=== PATIENT | female | born 1990 | race Caucasian/White ===

== ENCOUNTER 2016-08-01 12:34 | Emergency (ER) | payer OTHER ==
[~2016-08-01] VITALS: Ht 175.3 cm; Wt 90.9 kg
[~2016-08-01 12:34] MED LIST: AZIT500T3 PO
[2016-08-01 12:40] VITALS: Ht 175.3 cm; Wt 90.9 kg
--- NOTE | 2016-08-01 12:41 | ERA ---
ER Documentation Chief Complaint Date/Time DATE: 08/01/16 TIME: 12:38 Chief Complaint HPI This is a 26-year-old female that was brought into the emergency department by [employer] and she is currently in custody. The patient indicates that that she is currently 5 weeks dated by last menstrual period. She has received care. She is a 2 para 0 as she had a previous miscarriage at 7 weeks. She denies any fever shaking or chills no shortness of breath at rest or exertion. She is experiencing pelvic cramping that occurred just prior to arrival with vaginal spotting. She denies any passage of large vaginal clots and states she has no dizziness or lightheadedness. She denies any frequency urgency or dysuria ROS All systems reviewed and are negative except as per history of present illness. Medications Home Meds Discontinued Reported Medications Azithromycin* (Zithromax*) Unknown Strength Tablet, PO ONCE, #1 TAB 02/29/16 Allergies Allergies: Coded Allergies: No Known Allergy (Unverified , 01/24/13) PMhx/Soc History of Surgery: No Anesthesia Reaction: No Hx Neurological Disorder: No Hx Respiratory Disorders: No Hx Cardiac Disorders: No Hx Psychiatric Problems: Yes (SCHIZOPRENIA, BI-POLAR, sz disorder ) Hx Miscellaneous Medical Probl: No Hx Alcohol Use: No (former) Hx Substance Use: No (former) Hx Tobacco Use: No (former) Physical Exam Vitals Vital Signs Date Time Temp Pulse Resp B/P Pulse Ox O2 Delivery O2 Flow Rate FiO2 08/01/16 12:40 98.6 90 18 140/86 99 Physical Exam Constitutional:Well-developed. Well-nourished. HEENT:Normocephalic. Atraumatic.Pupils were equal round reactive to light. Moist mucous membranes.No tonsillar exudates. Neck: No nuchal rigidity. No lymphadenopathy. No posterior cervical spine tenderness or step-offs. Respiratory: Not using accessory muscles of respiration.Lungs were clear to auscultation bilaterally. No rhonchi. No rales. No wheezing. Cardiovascular: Regular rate regular rhythm.No murmurs. No rubs were appreciated.S1, S2 normal. Distal pulses are palpable 2+ bilaterally. GI: Abdomen was soft. Nontender. Non Distended. No pulsatile abdominal masses or bruits. No rebound. No guarding. Bowel sounds were present and normal. : Pelvic exam was performed by myself and the patient denied a female nausea found to be present. There is no cervical motion tenderness no adnexal tenderness or adnexal masses. No gross blood present within the vaginal vault Muscle skeletal: Full range of motion of both the upper and lower extremities bilaterally.Normal muscle tone.No assymetrical calf tenderness or swelling. Skin: No petechia, no purpura. No lesions on the palms or the soles of the feet. No maculopapular rash. NEURO: Patient was alert, awake, orientated x3.No facial droop. Gait observed and normal with no ataxia.Speech had regular rate and rhythm. No focal neurological deficits. Result Diagram: 08/01/16 1250 08/01/16 1250 Results 24 hrs Laboratory Tests Test 08/01/16 12:41 08/01/16 12:50 Urine Bacteria FEW Urine Bilirubin NEGATIVE Urine Clarity CLEAR Urine Color LT. YELLOW Urine Epithelial Cells MODERATE Urine Glucose NEGATIVE% Urine Hemoglobin NEGATIVE Urine Ketones NEGATIVE Urine Leukocyte Esterase 1+ Urine Microscopic RBC 0-2/HPF Urine Microscopic WBC 2-5/HPF Urine Nitrite NEGATIVE Urine Specific [place] 1.010 Urine Total Protein NEGATIVE Urine Urobilinogen 0.2 E.U./dL Urine pH 6.0 Anion Gap 16 Basophils # 0.010^3/ul Basophils % 0.5% Beta HCG, Quantitative 252.7mIU/ml Blood Morphology Comment Blood Urea Nitrogen 7mg/dl Calcium Level 9.8mg/dl Carbon Dioxide Level 28mmol/L Chloride Level 101mmol/L Creatinine 0.48mg/dl Eosinophils # 0.010^3/ul Eosinophils % 0.3% Glucose Level 107mg/dl Hematocrit 41.4% Hemoglobin 14.0g/dl Lymphocytes # 2.410^3/ul Lymphocytes % 25.6% Mean Corpuscular Hemoglobin 32.5pg Mean Corpuscular Hemoglobin Concent 33.9g/dl Mean Corpuscular Volume 96.0fl Mean Platelet Volume 7.4fl Monocytes # 0.410^3/ul Monocytes % 4.1% Neutrophils # 6.410^3/ul Neutrophils % 69.5% Nucleated Red Blood Cells # 0.010^3/ul Nucleated Red Blood Cells % 0.0/100WBC Platelet Count 94916^3/UL Potassium Level 4.4mmol/L Red Blood Count 4.3110^6/ul Red Cell Distribution Width 13.0% Sodium Level 141mmol/L White Blood Count 9.210^3/ul Procedures/MDM This patient presented to the emergency department with first trimester vaginal bleeding and pain. An ultrasound of the pelvis was performed by the lead principal technical architect and read by the radiologist myself. There is no evidence of ectopic . The patient was not anemic and did not require RhoGam. The patient's beta hCG was only 252 and there is no intrauterine that was seen on the ultrasound. However given the patient was below the discriminatory zone I did feel she required follow-up with her [facility] [employer] [facility] in 48 hours for repeat beta hCG. The patient had no physical exam findings at this time to suggest ectopic . The patient was medically cleared for alf at this time by myself. She was instructed that she will need to follow-up with her [facility] [employer] [employer] [facility] in the next 48 hours for reevaluation. The patient was discharged home in fair condition. They were instructed to return to the emergency department at any time if there was any worsening of their condition. The patient stated they would follow up with their PCP in the next 24-48 hours to initiate a suitable medication regimen under the care of their PCP as well as to allow their PCP to monitor any drug reactions. The patient was discharged home with prescriptions after they gave informed consent to the new medication. They were also fully informed by myself on the adverse effects and adverse drug interactions in order to provide adequate safeguards to prevent possible adverse reactions to medications. Departure Diagnosis: Primary Impression: Threatened in first trimester Condition: YOLANDA Garcia Aug 01, 2016 12:41
[2016-08-01 13:05] LABS: BASOPHILS % 0.5 % (0.0-2.0); EOSINOPHILS % 0.3 % (0.0-7.0); HEMATOCRIT 41.4 % (37.0-47.0); LYMPHOCYTES # 2.4 10^3/ul (0.8-2.9); LYMPHOCYTES % 25.6 % (15.0-51.0); MEAN CORPUSCULAR HEMOGLOBIN 32.5 pg (29.0-33.0); MEAN CORPUSCULAR HGB CONC 33.9 g/dl (32.0-37.0); MEAN PLATELET VOLUME 7.4 fl (7.4-10.4); MONOCYTE # 0.4 10^3/ul (0.3-0.9); MONOCYTES % 4.1 % (0.0-11.0); NEUTROPHIL # 6.4 10^3/ul (1.6-7.5); NEUTROPHILS % 69.5 % (39.0-77.0); PLATELET COUNT 326 10^3/UL (140-440); RED BLOOD COUNT 4.31 10^6/ul (4.20-5.40); UNCORRECTED WBC 9.2 10^3/ul (4.8-10.8); WHITE BLOOD COUNT 9.2 10^3/ul (4.8-10.8)
[2016-08-01 13:06] LABS: CONDITION 1
[2016-08-01 13:07] LABS: ADD UMIC YES; URINE BILIRUBIN (Dip) NEGATIVE (NEGATIVE); URINE BLOOD (Dip) NEGATIVE (NEGATIVE); URINE COLOR LT. YELLOW (YELLOW); URINE GLUCOSE (Dip) NEGATIVE (NEGATIVE); URINE KETONES (Dip) NEGATIVE (NEGATIVE); URINE LEUKOCYTE ESTERASE (Dip) 1+ (NEGATIVE); URINE NITRITE (Dip) NEGATIVE (NEGATIVE); URINE TOTAL PROTEIN (Dip) NEGATIVE (NEGATIVE); URINE UROBILINOGEN (Dip) 0.2 E.U./dL (0.1-1.0)
[2016-08-01 13:11] LABS: POTASSIUM 4.4 mmol/L (3.5-5.1)
[2016-08-01 13:14] LABS: CREATININE 0.48 mg/dl (0.44-1.00)
[2016-08-01 13:15] LABS: CALCIUM 9.8 mg/dl (8.4-10.2)
[2016-08-01 13:29] LABS: BACTERIA,URINE FEW; URINE RBCS 0-2 /HPF (0)
--- NOTE | 2016-08-01 14:21 | RADRPT ---
PROCEDURE: OB Ultrasound. CLINICAL INDICATION: Positive test. Vaginal bleeding. TECHNIQUE: Ultrasound of the pelvis was performed with transabdominal and transvaginal sonography in the axial and sagittal planes. COMPARISON: No prior study is available for comparison. FINDINGS: There is no intrauterine gestational sac. Endometrial thickness is 14.4 mm. The uterus is normal i n size with no enlargement or mass. The uterus measures 7.9 x 3.8 x 4.6 cm. The right ovary measures 3.1 x 1.9 x 1.9 cm. The left ovary measures 3.0 x 1.6 x 1.4 cm. Color Doppler and pulsed Doppler sonography demonstrate normal flow to both ovaries. There is no ovarian enlargement or mass. There is no other pelvic mass or free fluid. IMPRESSION: 1. No intrauterine gestational sac. If the patient has a positive test, ectopic gestatio n cannot be excluded. 2. Otherwise unremarkable study. RPTAT: QQ .Abimael Kc MD, Date Time Electronically viewed and signed by .Abimael Kc MD, on 08/01/2016 14:21 .R/
[2016-08-01 15:13] VITALS: BP 135/78; PULSE 90; RESP 18; TEMP 98.6
== END 2016-08-01 15:13 | disposition home or self-care (01) ==
LOC: E/R 12:34
DX: O20.0 Threatened abortion (principal); Z87.891 Personal history of nicotine dependence
CPT/HCPCS: 76801; 76817; 80048; 81001; 81003; 84702; 85025; 86900; 86901; 87086

== ENCOUNTER 2016-08-31 09:24 | Emergency (ER) | payer MEDICAID, OTHER ==
[~2016-08-31] VITALS: Ht 175.3 cm; Wt 96.8 kg
[2016-08-31 09:29] VITALS: Ht 175.3 cm; Wt 96.8 kg
[2016-08-31] MEDS ORDERED: ONDANSETRON 4 MG INJ IV STA (10:12)
[2016-08-31] MEDS ORDERED: SOD CHLORIDE 0.9% 1,000 ML IV STA (10:12)
[2016-08-31 10:26] LABS: URINE BLOOD (Dip) POC Negative (NEGATIVE)
[2016-08-31 10:34] LABS: ADD SCAN DIFF NO
[2016-08-31 10:42] LABS: BASOPHIL # 0.1 10^3/ul (0.0-0.1); BASOPHILS % 0.5 % (0.0-2.0); EOSINOPHILS # 0.2 10^3/ul (0.0-0.5); EOSINOPHILS % 1.6 % (0.0-7.0); HEMATOCRIT 40.7 % (37.0-47.0); HEMOGLOBIN 13.1 g/dl (12.0-16.0); LYMPHOCYTES # 2.8 10^3/ul (0.8-2.9); LYMPHOCYTES % 28.6 % (15.0-51.0); MEAN CORPUSCULAR HGB CONC 32.2 g/dl (32.0-37.0); MEAN CORPUSCULAR VOLUME 99.5 fl (82.0-101.0); MEAN PLATELET VOLUME 9.2 fl (7.4-10.4); MONOCYTE # 0.6 10^3/ul (0.3-0.9); MONOCYTES % 6.1 % (0.0-11.0); NEUTROPHIL # 6.1 10^3/ul (1.6-7.5); NEUTROPHILS % 62.5 % (39.0-77.0); PLATELET COUNT 299 10^3/UL (140-415); RED BLOOD COUNT 4.09 10^6/ul (4.20-5.40); RED CELL DISTRIBUTION WIDTH 12.5 % (11.5-14.5); WHITE BLOOD COUNT 9.8 10^3/ul (4.8-10.8)
[2016-08-31 10:56] LABS: BARBITURATES Negative (NEGATIVE); BENZODIAZEPINES Negative (NEGATIVE); CANNABINOIDS Negative (NEGATIVE); COCAINE Negative (NEGATIVE)
[2016-08-31 10:57] LABS: OPIATES Negative (NEGATIVE)
--- NOTE | 2016-08-31 11:12 | RADRPT ---
AMENDMENT: 08/31/2016 12:00:49 PM Pam Calixto M.D. Impression should read estimated gestational age of 6 weeks 4 days. PROCEDURE: US OB. CLINICAL INDICATION: Vaginal bleeding in . TECHNIQUE: Transabdominal and endovaginal imaging of the uterus is available for review COMPARISON: None available FINDINGS: There is a single intrauterine with a mean sac diameter of 1.8 cm, giving an estimated ges tational age of 6 weeks 4 days by ultrasound criteria. No pole or yolk sac is detected. A sm all subchorionic hemorrhage is identified. The ovaries are unremarkable. IMPRESSION: 1. Single intrauterine with an estimated gestational age of 2 weeks 4 days by ultrasound criteria. No pole or yolk sac is identified. This may be secondary to early dates. Repeat pe lvic ultrasound is recommended in 1 week. 2. Small subchorionic hemorrhage. RPTAT: HH .Pam Calixto MD, MD Date Time Electronically viewed and signed by .Pam Calixto MD, on 08/31/2016 12:00 .G/
--- NOTE | 2016-08-31 11:54 | ERD ---
ER Documentation Chief Complaint Date/Time DATE: 08/31/16 TIME: 11:48 Chief Complaint pt bib sister with c/o vomiting and pelvic pain approx 3 wk preg, no bleedi HPI This is a 26-year-old female presenting to the emergency department for vomiting and pelvic cramping 1 week. Patient states she believes she is about 6 weeks . Patient states last menstrual period June 20, 2016. A1. Patient states she has been vomiting about 3 times per day. Nonbloody nonbilious emesis. Patient states each emesis is a small amount. No fevers or chills. No cough, shortness breath, difficulty breathing or chest pain. Patient has been having some pelvic pain and pelvic cramping. Denies vaginal bleeding. No vaginal discharge. Patient denies any recent alcohol, tobacco or drug use. Patient requesting urine toxicity screen to provide for her family. Patient is taking vitamins ROS All systems reviewed and are negative except as per history of present illness. Medications Home Meds Active Scripts Acetaminophen* (Tylenol*) 325 Mg Tablet, 1 TAB PO Q6 Y for PAIN AND OR ELEVATED TEMP, #20 TAB Prov:ENEDINA BARNETT NP 08/31/16 Nitrofurantoin Monohyd Macrocr* (Macrobid*) 100 Mg Capsr, 100 MG PO BID for 5 Days, CAP Prov:ENEDINA BARNETT NP 08/31/16 Allergies Allergies: Coded Allergies: No Known Allergy (Unverified , 08/31/16) PMhx/Soc Medical and Surgical Hx: pt denies Surgical Hx History of Surgery: No Anesthesia Reaction: No Hx Neurological Disorder: No Hx Respiratory Disorders: No Hx Cardiac Disorders: No Hx Psychiatric Problems: Yes (SCHIZOPRENIA, BI-POLAR, sz disorder ) Hx Miscellaneous Medical Probl: No Hx Alcohol Use: No (former) Hx Substance Use: No (former) Hx Tobacco Use: No (former) Smoking Status: Never smoker Physical Exam Vitals Vital Signs Date Time Temp Pulse Resp B/P Pulse Ox O2 Delivery O2 Flow Rate FiO2 08/31/16 12:46 77 18 125/68 99 Room Air 08/31/16 09:29 97.3 84 16 128/70 100 Physical Exam Const: No acute distress, alert Head: Atraumatic Eyes: Normal Conjunctiva ENT: Normal External Ears, Nose and Mouth. Neck: Full range of motion..~ No meningismus. Resp: Clear to auscultation bilaterally Cardio: Regular rate and rhythm, no murmurs Abd: Soft, non tender, non distended. Normal bowel sounds Skin: No petechiae or rashes Back: No midline or flank tenderness Ext: No cyanosis, or edema Neur: Awake and alert Psych: Normal Mood and Affect Result Diagram: 08/31/16 1020 Results 24 hrs Laboratory Tests Test 08/31/16 10:20 08/31/16 10:28 Basophils # 0.110^3/ul Basophils % 0.5% Beta HCG, Quantitative 98632.0mIU/ml Eosinophils # 0.210^3/ul Eosinophils % 1.6% Hematocrit 40.7% Hemoglobin 13.1g/dl Lymphocytes # 2.810^3/ul Lymphocytes % 28.6% Mean Corpuscular Hemoglobin 32.0pg Mean Corpuscular Hemoglobin Concent 32.2g/dl Mean Corpuscular Volume 99.5fl Mean Platelet Volume 9.2fl Monocytes # 0.610^3/ul Monocytes % 6.1% Neutrophils # 6.110^3/ul Neutrophils % 62.5% Nucleated Red Blood Cells # 0.010^3/ul Nucleated Red Blood Cells % 0.0/100WBC Platelet Count 47932^3/UL Red Blood Count 4.0910^6/ul Red Cell Distribution Width 12.5% Urine Amphetamines Screen Negative Urine Barbiturates Negative Urine Benzodiazepines Screen Negative Urine Cannabinoids Negative Urine Cocaine Screen Negative Urine Opiates Screen Negative White Blood Count 9.810^3/ul Bedside Urine Blood Negative Bedside Urine Glucose (UA) Negative Bedside Urine Ketones (LAB) Negative Bedside Urine Leukocyte Esterase (L 1+ Bedside Urine Nitrite (LAB) Negative Bedside Urine Protein (LAB) Negative Bedside Urine pH (LAB) 5.5 Current Medications Medications (Trade) Dose Ordered Sig/Walter Route PRN Reason Start Time Stop Time Status Last Admin Dose Admin Sodium Chloride (NS) 1,000 ml @ 1,000 mls/hr Q1H STAT IV 08/31/16 10:12 08/31/16 11:11 DC 08/31/16 10:20 Ondansetron HCl (Zofran Inj) 4 mg ONCE STAT IV 08/31/16 10:12 08/31/16 10:14 DC 08/31/16 10:19 Procedures/MDM ED COURSE: The patient was stable throughout ED course. I kept the patient and/or family informed of laboratory and diagnostic imaging results throughout the ED course. Laboratory CBC no significant anemia or infection Beta Hcg 19,266.0 Type/ R/h factor O negative Urine dip 1+ leukocyte esterase otherwise negative Urine drug screen negative Imaging OB ultrasound Patient: MOSES ISIDRO : 1990 Age: 26 Sex: F MR #: [id number] DOS: 08/31/16 1012 Ordering MD: ENEDINA BARNETT NP Location: [facility] Room/Bed: AMENDMENT: 08/31/2016 12:00:49 PM Pam Calixto M.D. Impression should read estimated gestational age of 6 weeks 4 days. PROCEDURE: US OB. CLINICAL INDICATION: Vaginal bleeding in . TECHNIQUE: Transabdominal and endovaginal imaging of the uterus is available for review COMPARISON: None available FINDINGS: There is a single intrauterine with a mean sac diameter of 1.8 cm, giving an estimated gestational age of 6 weeks 4 days by ultrasound criteria. No pole or yolk sac is detected. A small subchorionic hemorrhage is identified. The ovaries are unremarkable. IMPRESSION: 1. Single intrauterine with an estimated gestational age of 2 weeks 4 days by ultrasound criteria. No pole or yolk sac is identified. This may be secondary to early dates. Repeat pelvic ultrasound is recommended in 1 week. 2. Small subchorionic hemorrhage. MDM: This is a 26-year-old female presents emergency department for vomiting and pelvic pain 1 week. No vaginal bleeding. Patient states her last menstrual period was 06/20/2016 and states that she is . OB ultrasound reviewed by radiologist shows single intrauterine with an estimated gestational age of 6 weeks 4 days by ultrasound criteria. No pole or yolk sac is detected. A small subchorionic hemorrhage is identified. The ovaries are unremarkable. Labs show no significant anemia or infection. Urine shows 1+ leukocyte Estrace otherwise negative. Patient given 1 L normal saline fluid bolus and Zofran. Patient states nausea has improved. No active vomiting while in the ED. Patient states she was seen at her [employer] [employer] office yesterday and that everything was "normal." Low suspicion for spontaneous , ectopic , tubo-ovarian abscess or ovarian torsion. Patient is appropriate for outpatient management and instructed to return to ED in 2 days for repeat labs and ultrasound. Follow-up with [employer] in the next week for reassessment and additional management. Return to ED for any high fever, chest pain, difficulty breathing, shortness breath, wheezing, vomiting, diarrhea, abdominal pain or any new or worsening symptoms. Patient verbalizes understanding. All questions answered at discharge. Departure Diagnosis: Primary Impression: Pelvic pain complicating Condition: Stable ENEDINA BARNETT NP Aug 31, 2016 11:54
[2016-08-31] MEDS ORDERED: ACET325T33 PO (12:34)
[2016-08-31] MEDS ORDERED: NITR-58 PO (12:34)
[2016-08-31 12:46] VITALS: BP 125/68; PULSE 77; RESP 18
== END 2016-08-31 12:46 | disposition home or self-care (01) ==
LOC: FTE 09:24
DX: O26.891 Other specified pregnancy related conditions, first trimester (principal); R10.2 Pelvic and perineal pain; O21.9 Vomiting of pregnancy, unspecified; Z87.891 Personal history of nicotine dependence; Z3A.01 Less than 8 weeks gestation of pregnancy
CPT/HCPCS: 36415; 76801; 76817; 80307; 81003; 84702; 85025; 86900; 86901; 96374; J2405; J7030; Z7502

== ENCOUNTER 2016-09-10 17:34 | Emergency (ER) | payer SELFPAY ==
[~2016-09-10] VITALS: Wt 78.0 kg
[~2016-09-10 17:34] MED LIST changes: +ACET325T33 PO; -AZIT500T3 PO; +NITR-58 PO
== END 2016-09-10 18:31 | disposition left against medical advice (07) ==
LOC: FTE 17:34
DX: Z53.21 Procedure and treatment not carried out due to patient leaving prior to being seen by health care provider (principal)

== ENCOUNTER 2016-10-22 15:58 | Emergency (ER) | payer OTHER ==
[~2016-10-22] VITALS: Ht 172.7 cm; Wt 95.0 kg
[2016-10-22 16:29] VITALS: Ht 172.7 cm; Wt 95.0 kg
[2016-10-22] MEDS ORDERED: SOD CHLORIDE 0.9% 500 ML IV STA (18:03)
[2016-10-22] MEDS ORDERED: KETOROLAC 15 MG INJ IV STA (18:03)
[2016-10-22] MEDS ORDERED: ONDANSETRON 4 MG INJ IV STA (18:03)
[2016-10-22 18:28] LABS: URINE BLOOD (Dip) POC Negative (NEGATIVE)
[2016-10-22 18:44] LABS: ADD SCAN DIFF NO
[2016-10-22 18:49] LABS: BASOPHILS % 0.3 % (0.0-2.0); EOSINOPHILS # 0.1 10^3/ul (0.0-0.5); EOSINOPHILS % 1.8 % (0.0-7.0); HEMATOCRIT 41.4 % (37.0-47.0); HEMOGLOBIN 13.5 g/dl (12.0-16.0); LYMPHOCYTES % 32.4 % (15.0-51.0); MEAN CORPUSCULAR HEMOGLOBIN 32.2 pg (29.0-33.0); MEAN CORPUSCULAR HGB CONC 32.6 g/dl (32.0-37.0); MEAN CORPUSCULAR VOLUME 98.8 fl (82.0-101.0); MEAN PLATELET VOLUME 9.3 fl (7.4-10.4); MONOCYTE # 0.5 10^3/ul (0.3-0.9); MONOCYTES % 8.3 % (0.0-11.0); NEUTROPHIL # 3.5 10^3/ul (1.6-7.5); NEUTROPHILS % 56.7 % (39.0-77.0); PLATELET COUNT 321 10^3/UL (140-415); RED BLOOD COUNT 4.19 10^6/ul (4.20-5.40); RED CELL DISTRIBUTION WIDTH 12.4 % (11.5-14.5); WHITE BLOOD COUNT 6.2 10^3/ul (4.8-10.8)
[2016-10-22 19:04] LABS: ALBUMIN 4.3 g/dl (3.3-4.9); ALBUMIN/GLOBULIN RATIO 1.13; BILIRUBIN,INDIRECT 0.2 mg/dl (0-1.1); BILIRUBIN,TOTAL 0.2 mg/dl (0.2-1.3); CALCIUM 9.1 mg/dl (8.4-10.2); CREATININE 0.53 mg/dl (0.44-1.00); POTASSIUM 3.8 mmol/L (3.5-5.1); TOTAL PROTEIN 8.1 g/dl (6.1-8.1)
[2016-10-22 19:11] LABS: CANNABINOIDS Negative (NEGATIVE)
[2016-10-22 19:14] LABS: BARBITURATES Negative (NEGATIVE); BENZODIAZEPINES Negative (NEGATIVE); COCAINE Negative (NEGATIVE); OPIATES Negative (NEGATIVE)
--- NOTE | 2016-10-22 19:23 | RADRPT ---
PROCEDURE: US Abdomen Limited . CLINICAL INDICATION: Abdominal pain TECHNIQUE: Multiple real-time images were acquired of the patient's right upper quadrant abdomen u tilizing a high resolution transducer. COMPARISON: None FINDINGS: The liver measures 13.6 cm and demonstrates a normal echogenicity. The gallbladder is filled with a moderate amount of bile. Multiple echogenic, shadowing stones are identified in the gallbladder. Th e gallbladder wall is mildly thickened at 3.4 mm. No pericholecystic fluid is noted. The common bile duct measures 4.1 mm in diameter. The pancreas is not well visualized. Antegrade flow is seen in the portal vein. Right kidney measures 11.9 cm. Right kidney demonstrates a normal echogenicity. No hydronephrosis, masses or stones are noted. IMPRESSION: Cholelithiasis with a mildly thickened gallbladder wall. Findings are nonspecific. If there is clin ical suspicion for cholecystitis further characterization with CT, MRI or HIDA scan could be helpfu l. Pancreas not well visualized. If characterization of this structure is needed repeat exam or CT/MRI is recommended. RPTAT: AA .Harvey Noyola MD, Date Time Electronically viewed and signed by .Harvey Noyola MD, on 10/22/2016 19:23 .P/
[2016-10-22] MEDS ORDERED: HYDR-906 PO (19:42)
[2016-10-22] MEDS ORDERED: ONDA4TAB8 PO (19:43)
[2016-10-22] MEDS ORDERED: NITR-58 PO (19:45)
[2016-10-22 19:58] VITALS: BP 115/74; PULSE 72; RESP 17; TEMP 98.9
--- NOTE | 2016-10-22 21:14 | ERD ---
ER Documentation Chief Complaint Date/Time DATE: 10/22/16 TIME: 21:07 Chief Complaint EPIGASTRIC PAIN,DIARRHEA X 2 DAYS HPI Patient is a 26-year-old female who presents to the ED with epigastric pain 3 days. She states that she has a past history of gallstones but has never gotten any further treatment regarding this. She states that her pain is only located in her epigastric region and does not radiate anywhere else. She denies nausea or vomiting. She denies fever or chills. She states that she also had an episode of nonbloody nonblack or tarry diarrhea today. She also complains of dysuria with no urgency. She denies back pain. She denies vaginal bleeding. Patient also states that she had a miscarriage on 09/11/16. She denies any cramping or bleeding. She denies any abnormal vaginal discharge. She states that she has not taken any medication for her symptoms. Patient denies chest pain, cough or shortness of breath or difficulty breathing. Patient is also requesting a urine drug screen to "prove to my sister that I am not doing drugs." Patient denies leg pain or swelling. Denies recent surgery or recent travel. Patient denies use of drugs. ROS All systems reviewed and are negative except as per history of present illness. Medications Home Meds Active Scripts Nitrofurantoin Monohyd Macrocr* (Macrobid*) 100 Mg Capsr, 100 MG PO BID for 7 Days, CAP Prov:MARITZA DOWNING PA-C 10/22/16 Ondansetron Hcl* (Zofran*) 4 Mg Tablet, 4 MG PO Q6H for NAUSEA AND/OR VOMITING, #30 TAB Prov:MARITZA DOWNING PA-C 10/22/16 Hydrocodone/Acetaminophen ([place] 5-325 Tablet) 1 Each Tablet, 1 TAB PO Q6H Y for PAIN, #5 TAB Prov:MARITZA DOWNING-Melo 10/22/16 Acetaminophen* (Tylenol*) 325 Mg Tablet, 1 TAB PO Q6 Y for PAIN AND OR ELEVATED TEMP, #20 TAB Prov:ENEDINA BARNETT NP 08/31/16 Nitrofurantoin Monohyd Macrocr* (Macrobid*) 100 Mg Capsr, 100 MG PO BID for 5 Days, CAP Prov:ENEDINA BARNETT NP 08/31/16 Allergies Allergies: Coded Allergies: No Known Allergy (Unverified , 08/31/16) PMhx/Soc History of Surgery: No Anesthesia Reaction: No Hx Neurological Disorder: No Hx Respiratory Disorders: No Hx Cardiac Disorders: No Hx Psychiatric Problems: Yes (SCHIZOPRENIA, BI-POLAR, sz disorder ) Hx Miscellaneous Medical Probl: No Hx Alcohol Use: No (former) Hx Substance Use: No (former) Hx Tobacco Use: Yes (Daily cigarette use) Smoking Status: Never smoker FmHx Family History: No coronary disease, No diabetes, No other Physical Exam Vitals Vital Signs Date Time Temp Pulse Resp B/P Pulse Ox O2 Delivery O2 Flow Rate FiO2 10/22/16 19:58 98.9 72 17 115/74 100 Room Air 10/22/16 16:29 98.5 86 18 126/69 98 Physical Exam GENERAL: Well-developed, well-nourished female. Appears in no acute distress. HEAD: Normocephalic, atraumatic. EYES: Pupils are equally reactive bilaterally. EOMs grossly intact. No conjunctival erythema. ENT: Moist mucous membranes. No uvula deviation. No kissing tonsils. No exudates. NECK: Supple. No lymphadenopathy or thyromegaly. No meningismus. negative kernig. negative brudinski. LUNG: Clear to auscultation bilaterally. No rhonchi, wheezing, rales or coarse breath sounds. HEART: Regular rate and rhythm. No murmurs, rubs or gallops. ABDOMEN: No scars, ecchymosis or rashes noted. Soft, , and nondistended. Positive bowel sounds in all four quadrants. No rebound tenderness, no guarding. (-) McBurneys point tenderness. No CVA tenderness. Tenderness in the epigastric region. Negative Panda sign. SKIN: Normal color. Warm and dry. No rashes or lesions. Capillary refill < 2 seconds Result Diagram: 10/22/16182310/22/161823 Results 24 hrs Laboratory Tests Test 10/22/16 18:24 10/22/16 18:28 White Blood Count 6.210^3/ul Red Blood Count 4.1910^6/ul Hemoglobin 13.5g/dl Hematocrit 41.4% Mean Corpuscular Volume 98.8fl Mean Corpuscular Hemoglobin 32.2pg Mean Corpuscular Hemoglobin Concent 32.6g/dl Red Cell Distribution Width 12.4% Platelet Count 78528^3/UL Mean Platelet Volume 9.3fl Neutrophils % 56.7% Lymphocytes % 32.4% Monocytes % 8.3% Eosinophils % 1.8% Basophils % 0.3% Nucleated Red Blood Cells % 0.0/100WBC Neutrophils # 3.510^3/ul Lymphocytes # 2.010^3/ul Monocytes # 0.510^3/ul Eosinophils # 0.110^3/ul Basophils # 0.010^3/ul Nucleated Red Blood Cells # 0.010^3/ul Sodium Level 140mmol/L Potassium Level 3.8mmol/L Chloride Level 104mmol/L Carbon Dioxide Level 28mmol/L Anion Gap 12 Blood Urea Nitrogen 6mg/dl Creatinine 0.53mg/dl Glucose Level 65mg/dl Calcium Level 9.1mg/dl Total Bilirubin 0.2mg/dl Direct Bilirubin 0.00mg/dl Indirect Bilirubin 0.2mg/dl Aspartate Amino Transf (AST/SGOT) 61IU/L Alanine Aminotransferase (ALT/SGPT) 68IU/L Alkaline Phosphatase 115IU/L Total Protein 8.1g/dl Albumin 4.3g/dl Globulin 3.80g/dl Albumin/Globulin Ratio 1.13 Lipase 35U/L Urine Opiates Screen Negative Urine Barbiturates Negative Urine Amphetamines Screen Negative Urine Benzodiazepines Screen Negative Urine Cocaine Screen Negative Urine Cannabinoids Negative Bedside Urine pH (LAB) 6.0 Bedside Urine Protein (LAB) Negative Bedside Urine Glucose (UA) Negative Bedside Urine Ketones (LAB) Negative Bedside Urine Blood Negative Bedside Urine Nitrite (LAB) Negative Bedside Urine Leukocyte Esterase (L 1+ Current Medications Medications (Trade) Dose Ordered Sig/Walter Route PRN Reason Start Time Stop Time Status Last Admin Dose Admin Sodium Chloride (NS) 500 ml @ 500 mls/hr Q1H STAT IV 10/22/16 18:03 10/22/16 19:02 DC 10/22/16 18:37 Ondansetron HCl (Zofran Inj) 4 mg ONCE STAT IV 10/22/16 18:03 10/22/16 18:08 DC 10/22/16 18:37 Ketorolac Tromethamine (Toradol) 15 mg ONCE STAT IV 10/22/16 18:03 10/22/16 18:08 DC 10/22/16 18:37 Procedures/MDM ER COURSE: I kept the patient and/or family informed of laboratory and diagnostic imaging results throughout the emergency room course. EKG, MONITORS, & DIAGNOSTIC IMAGING: [place] [id number] Radiology Main Line: [phone] DIAGNOSTIC IMAGING REPORT Patient: MOSES ISIDRO : 1990 Age: 26 Sex: F MR #: [id number] DOS: 10/22/16 1803 Ordering MD: MARITZA DOWNING PA-C Location: [facility] Room/Bed: PROCEDURE: US Abdomen Limited . CLINICAL INDICATION: Abdominal pain TECHNIQUE: Multiple real-time images were acquired of the patient's right upper quadrant abdomen utilizing a high resolution transducer. COMPARISON: None FINDINGS: The liver measures 13.6 cm and demonstrates a normal echogenicity. The gallbladder is filled with a moderate amount of bile. Multiple echogenic, shadowing stones are identified in the gallbladder. The gallbladder wall is mildly thickened at 3.4 mm. No pericholecystic fluid is noted. The common bile duct measures 4.1 mm in diameter. The pancreas is not well visualized. Antegrade flow is seen in the portal vein. Right kidney measures 11.9 cm. Right kidney demonstrates a normal echogenicity. No hydronephrosis, masses or stones are noted. IMPRESSION: Cholelithiasis with a mildly thickened gallbladder wall. Findings are nonspecific. If there is clinical suspicion for cholecystitis further characterization with CT, MRI or HIDA scan could be helpful. Pancreas not well visualized. If characterization of this structure is needed repeat exam or CT/MRI is recommended. RPTAT: AA .Harvey Noyola MD, MD Date Time Electronically viewed and signed by .Harvey Noyola MD, MD on 10/22/2016 19:23 .P/ CC: MARITZA DOWNING PA-C MEDICATIONS: IV fluids, saline, Zofran, Toradol. Tolerated well with no adverse reaction. LAB INTERPRETATION: CBC showed no evidence of systemic infection or severe anemia. CMP showed no evidence of electrolyte abnormalities, severe acidosis, alkalosis, renal failure , or liver disease. Lipase showed no evidence of acute pancreatitis. UA showed no evidence of, nitrites or hematuria, 1+ leukocytes. Urine test was negative. Urine drug screen was negative MEDICAL DECISION MAKING: This is a 26-year-old female who presents with epigastric pain 3 days. Vital signs were reviewed. Patient is afebrile. Patient is not hypoxic. Patient is not toxic or ill-appearing. Patient's ultrasound shows Cholelithiasis with a mildly thickened gallbladder wall. Patient does not have increase in leukocytes or neutrophil shift. Patient has a slightly elevated ALT with normal AST and alk phosphatase and lipase. Her urine does show 1+ leukocytes. Patient does not have pain in the right upper quadrant and has a negative Panda sign and is afebrile. Low suspicion for cholecystitis. I consulted with Dr. Merino about this patient who reviewed her imaging studies, laboratory studies, and came to examine patient at bedside. Patient stated improvement in symptoms after administration of medication and stated that she had very mild pain. Dr. Merino stated that patient can be managed outpatient only and to follow -up with a general surgeon for further evaluation and possible surgery. Low suspicion for ACS, AAA, perforated ulcer, bowel obstruction, cholecystitis, choledocholithiasis, cholangitis, pancreatitis, hepatic abscess, appendicitis, diverticulitis, gastroenteritis, hepatitis, peptic ulcer disease, HELLP syndrome. DISCHARGE: At this time, patient is stable for discharge and outpatient management with no new complaints during the ER course. Patient was sent home with Macrobid for infection, Zofran for nausea and Falun for pain. Patient to follow outpatient only with general surgeon. Advised patient to return to the ER for any worsening symptoms such as fever or pain in the right upper quadrant. Patient will be discharged home with instructions to recheck for new or worsening symptoms such as fever, nausea, weakness, LOC and to follow up with primary care in the next 1-2 days. Patient was advised to return to the ER for any new or worsening symptoms. Plan was discussed and patient and/or family understands and agrees. Home instructions were given. Departure Diagnosis: Primary Impression: Cholelithiasis Cholelithiasis location: other site Biliary obstruction: without biliary obstruction Qualified Code: K80.80 - Biliary calculus of other site without obstruction Condition: Stable Patient Instructions: Gallstones, Cholecystitis, Presumed Referrals: [facility] YOU HAVE RECEIVED A MEDICAL SCREENING EXAM AND THE RESULTS INDICATE THAT YOU DO NOT HAVE A CONDITION THAT REQUIRES URGENT TREATMENT IN THE EMERGENCY DEPARTMENT. FURTHER EVALUATION AND TREATMENT OF YOUR CONDITION CAN WAIT UNTIL YOU ARE SEEN IN YOUR DOCTORS OFFICE WITHIN THE NEXT 1-2 DAYS. IT IS YOUR RESPONSIBILITY TO MAKE AN APPOINTMENT FOR FOLOW-UP CARE. IF YOU HAVE A PRIMARY DOCTOR --you should call your primary doctor and schedule an appointment IF YOU DO NOT HAVE A PRIMARY DOCTOR YOU CAN CALL OUR PHYSICIAN REFERRAL HOTLINE AT IF YOU CAN NOT AFFORD TO SEE A PHYSICIAN YOU CAN CHOSE FROM THE FOLLOWING [facility] [address] [facility]. [facility] [address] [facility] [facility] [address] [facility] [address] [facility]. [facility] [address] [facility]. [facility] [address] Additional Instructions: Call your primary care doctor TOMORROW for an appointment during the next 1-2 days.See the doctor sooner or return here if your condition worsens before your appointment time. FOLLOW UP WITH A GENERAL SURGEON MARITZA DOWNING PA-C Oct 22, 2016 21:14
== END 2016-10-22 19:59 | disposition home or self-care (01) ==
LOC: FTE 15:58
DX: K80.80 Other cholelithiasis without obstruction (principal); F17.210 Nicotine dependence, cigarettes, uncomplicated
CPT/HCPCS: 36415; 76705; 80053; 80307; 81003; 83690; 85025; 96374; 96375; J1885; J2405; J7040; Z7502

== ENCOUNTER 2016-10-26 19:23 | Emergency (ER) | payer OTHER ==
[~2016-10-26] VITALS: Ht 167.6 cm; Wt 93.5 kg
[~2016-10-26 19:23] MED LIST changes: +HYDR-906 PO; +ONDA4TAB8 PO
[2016-10-26 19:28] VITALS: Ht 167.6 cm; Wt 93.5 kg
[2016-10-26] MEDS ORDERED: SOD CHLORIDE 0.9% 1,000 ML IV STA (19:52)
[2016-10-26] MEDS ORDERED: morphine 4 MG/ML VIAL IV STA ×2 (19:52→20:30)
[2016-10-26] MEDS ORDERED: ONDANSETRON 4 MG INJ IV STA (19:52)
[2016-10-26 20:13] LABS: ADD SCAN DIFF NO
[2016-10-26 20:23] LABS: BASOPHILS % 0.2 % (0.0-2.0); EOSINOPHILS % 0.4 % (0.0-7.0); HEMATOCRIT 40.3 % (37.0-47.0); HEMOGLOBIN 13.1 g/dl (12.0-16.0); LYMPHOCYTES # 3.1 10^3/ul (0.8-2.9); LYMPHOCYTES % 38.2 % (15.0-51.0); MEAN CORPUSCULAR HEMOGLOBIN 31.8 pg (29.0-33.0); MEAN CORPUSCULAR HGB CONC 32.5 g/dl (32.0-37.0); MEAN CORPUSCULAR VOLUME 97.8 fl (82.0-101.0); MEAN PLATELET VOLUME 9.1 fl (7.4-10.4); MONOCYTE # 0.7 10^3/ul (0.3-0.9); NEUTROPHIL # 4.3 10^3/ul (1.6-7.5); NEUTROPHILS % 52.7 % (39.0-77.0); PLATELET COUNT 350 10^3/UL (140-415); RED BLOOD COUNT 4.12 10^6/ul (4.20-5.40); RED CELL DISTRIBUTION WIDTH 12.3 % (11.5-14.5); WHITE BLOOD COUNT 8.1 10^3/ul (4.8-10.8)
[2016-10-26 20:33] LABS: ALBUMIN 4.9 g/dl (3.3-4.9); POTASSIUM 3.4 mmol/L (3.5-5.1)
[2016-10-26 20:35] LABS: CREATININE 0.55 mg/dl (0.44-1.00)
[2016-10-26 20:36] LABS: ALBUMIN/GLOBULIN RATIO 1.22; BILIRUBIN,INDIRECT 0.6 mg/dl (0-1.1); BILIRUBIN,TOTAL 0.6 mg/dl (0.2-1.3); CALCIUM 9.6 mg/dl (8.4-10.2); TOTAL PROTEIN 8.9 g/dl (6.1-8.1)
--- NOTE | 2016-10-26 21:00 | ERD ---
ER Documentation Chief Complaint Date/Time DATE: 10/26/16 TIME: 20:58 Chief Complaint Right upper quadrant abdominal pain for 5 days HPI 26-year-old female presents here in emergency department for complaints of right upper quadrant abdominal pain for 5 days, patient was diagnosed to have gallbladder stones, was unable to fill [place] in the pharmacy. Patient continues to have the pain, sharp pain 6/10 scale, accompanied with nausea vomiting, worst after eating. Patient denies any fever or chills. Patient denies any flank pain. Patient denies any diarrhea or constipation. Patient denies any hematuria or dysuria. ROS All systems reviewed and are negative except as per history of present illness. Medications Home Meds Active Scripts Ciprofloxacin Hcl* (Ciprofloxacin Hcl*) 500 Mg Tablet, 500 MG PO BID for 7 Days , TAB Prov:TMO CORNELIUS NP 10/26/16 Ondansetron (Ondansetron Odt) 4 Mg Tab.rapdis, 4 MG PO Q8 Y for NAUSEA AND/OR VOMITING, #30 TAB Prov:TOM CORNELIUS NP 10/26/16 Oxycodone HCl/Acetaminophen (Percocet 5-325 mg Tablet) 1 Each Tablet, 1 EACH PO Q6 Y for SEVERE PAIN LEVEL 7-10, #7 TAB Prov:TOM CORNELIUS NP 10/26/16 Nitrofurantoin Monohyd Macrocr* (Macrobid*) 100 Mg Capsr, 100 MG PO BID for 7 Days, CAP Prov:MARITZA DOWNING PA-C 10/22/16 Ondansetron Hcl* (Zofran*) 4 Mg Tablet, 4 MG PO Q6H for NAUSEA AND/OR VOMITING, #30 TAB Prov:ESTHELA DOWNINGAZ PA-C 10/22/16 Hydrocodone/Acetaminophen ([place] 5-325 Tablet) 1 Each Tablet, 1 TAB PO Q6H Y for PAIN, #5 TAB Prov:SHORANDTARIAN,TANNAZ PA-C 10/22/16 Acetaminophen* (Tylenol*) 325 Mg Tablet, 1 TAB PO Q6 Y for PAIN AND OR ELEVATED TEMP, #20 TAB Prov:ENEDINA BARNETT NP 08/31/16 Nitrofurantoin Monohyd Macrocr* (Macrobid*) 100 Mg Capsr, 100 MG PO BID for 5 Days, CAP Prov:ENEDINA BARNETT NP 08/31/16 Allergies Allergies: Coded Allergies: No Known Allergy (Unverified , 08/31/16) PMhx/Soc History of Surgery: No Anesthesia Reaction: No Hx Neurological Disorder: No Hx Respiratory Disorders: No Hx Cardiac Disorders: No Hx Psychiatric Problems: Yes (SCHIZOPRENIA, BI-POLAR, sz disorder ) Hx Miscellaneous Medical Probl: No Hx Alcohol Use: No (former) Hx Substance Use: No (former) Hx Tobacco Use: Yes (Daily cigarette use) Smoking Status: Former smoker FmHx Family History: No coronary disease, No diabetes, No other Physical Exam Vitals Vital Signs Date Time Temp Pulse Resp B/P Pulse Ox O2 Delivery O2 Flow Rate FiO2 10/26/16 22:44 66 18 122/68 100 Room Air 10/26/16 19:28 97.3 91 20 123/77 99 Physical Exam GENERAL: The patient is well developed and appropriate for usual state of health, in no apparent distress. CHEST: Clear to auscultation bilaterally. There are no rales, wheezes or rhonchi. HEART: Regular rate and rhythm. No murmurs, clicks, rubs or gallops. No S3 or S4. ABDOMEN: Soft, nontender and nondistended. Good bowel sounds. No rebound or guarding. No gross peritonitis. No gross organomegaly or masses. No Panda sign or McBurney point tenderness. BACK: No midline or flank tenderness. EXTREMITIES: Equal pulses bilaterally. There is no peripheral clubbing, cyanosis or edema. No focal swelling or erythema. Full range of motion. Grossly neurovascularly intact. NEURO: Alert and oriented. Cranial nerves 2-12 intact. Motor strength in all 4 extremities with 5/5 strength. Sensation grossly intact. Normal speech and gait. SKIN: There is no apparent rash or petechia. The skin is warm and dry. HEMATOLOGIC AND LYMPHATIC: There is no evidence of excessive bruising or lymphedema. No gross cervical, axillary, or inguinal lymphadenopathy. Result Diagram: 10/26/16200310/26/162003 Results 24 hrs Laboratory Tests Test 10/26/16 19:59 10/26/16 20:04 Urine Color YELLOW Urine Clarity CLEAR Urine pH 6.0 Urine Specific [place] 1.020 Urine Ketones 3+ Urine Nitrite NEGATIVE Urine Bilirubin 1+ Urine Ictotest NEGATIVE Urine Urobilinogen 1.0 E.U./dL Urine Leukocyte Esterase 1+ Urine Microscopic RBC 0-2/HPF Urine Microscopic WBC 0-2/HPF Urine Squamous Epithelial Cells MANY Urine Bacteria MANY Urine Hemoglobin NEGATIVE Urine Glucose NEGATIVE% Urine Total Protein NEGATIVE White Blood Count 8.110^3/ul Red Blood Count 4.1210^6/ul Hemoglobin 13.1g/dl Hematocrit 40.3% Mean Corpuscular Volume 97.8fl Mean Corpuscular Hemoglobin 31.8pg Mean Corpuscular Hemoglobin Concent 32.5g/dl Red Cell Distribution Width 12.3% Platelet Count 97761^3/UL Mean Platelet Volume 9.1fl Neutrophils % 52.7% Lymphocytes % 38.2% Monocytes % 8.0% Eosinophils % 0.4% Basophils % 0.2% Nucleated Red Blood Cells % 0.0/100WBC Neutrophils # 4.310^3/ul Lymphocytes # 3.110^3/ul Monocytes # 0.710^3/ul Eosinophils # 0.010^3/ul Basophils # 0.010^3/ul Nucleated Red Blood Cells # 0.010^3/ul Sodium Level 139mmol/L Potassium Level 3.4mmol/L Chloride Level 100mmol/L Carbon Dioxide Level 25mmol/L Anion Gap 17 Blood Urea Nitrogen 8mg/dl Creatinine 0.55mg/dl Glucose Level 81mg/dl Calcium Level 9.6mg/dl Total Bilirubin 0.6mg/dl Direct Bilirubin 0.00mg/dl Indirect Bilirubin 0.6mg/dl Aspartate Amino Transf (AST/SGOT) 62IU/L Alanine Aminotransferase (ALT/SGPT) 65IU/L Alkaline Phosphatase 98IU/L Total Protein 8.9g/dl Albumin 4.9g/dl Globulin 4.00g/dl Albumin/Globulin Ratio 1.22 Lipase 31U/L Current Medications Medications (Trade) Dose Ordered Sig/Walter Route PRN Reason Start Time Stop Time Status Last Admin Dose Admin Sodium Chloride (NS) 1,000 ml @ 1,000 mls/hr Q1H STAT IV 10/26/16 19:52 10/26/16 20:51 DC 10/26/16 20:01 Morphine Sulfate (morphine) 4 mg ONCE STAT IV 10/26/16 19:52 10/26/16 19:56 DC 10/26/16 20:01 Ondansetron HCl (Zofran Inj) 4 mg ONCE STAT IV 10/26/16 19:52 10/26/16 19:56 DC 10/26/16 20:01 Morphine Sulfate (morphine) 4 mg ONCE STAT IV 10/26/16 20:30 10/26/16 20:41 DC 10/26/16 20:46 Diclofenac Sodium (Dyloject) 37.5 mg ONCE STAT IV 10/26/16 22:31 10/26/16 22:38 DC 10/26/16 22:43 Patient was given medication for pain here in emergency department, after treatment, patient verbalized feeling much better. Patient's pain is improved.Patient was given Zofran here in the emergency department. After treatment, patient was able to tolerate po fluids here in the emergency department without any vomiting. There is no signs and symptoms of dehydration. Normal saline IV bolus was given here in emergency department for rehydration, patient tolerated IV fluids. PROCEDURE: ULTRASOUND LIMITED ABDOMEN CLINICAL INDICATION: 26-year-old female with right upper quadrant pain. TECHNIQUE: Multiple sonographic of the right upper quadrant of the abdomen were obtained. The images were reviewed on a PACS workstation. COMPARISON: Right upper quadrant ultrasound October 22, 2016. FINDINGS: The pancreas is partially visualized and is otherwise normal. The liver displays normal echogenicity. The liver measures 15.7 cm in length. No evidence of intrahepatic biliary ductal dilatation is seen. The portal and hepatic veins are unremarkable. The gallbladder contains echogenic sludge and shadowing stones. The gallbladder wall is thickened measuring 4.4 mm.. No pericholecystic fluid is seen. The common bile duct measures 3.0 mm and is not dilated. The right kidney displays normal echogenicity. The right kidney measures 10.8 x 4.9 x 3.9 cm. No caliectasis or hydronephrosis is seen. No free fluid is seen. IMPRESSION: Cholelithiasis with thickened gallbladder wall. .Carlos Mejia MD, MD Date Time Electronically viewed and signed by .Carlos Mejia MD, on 10/26/2016 22:10 .M/ CC: TOM CORNELIUS NP Procedures/MDM Medical Decision Making: Patient's abdominal pain most likely consistent with biliary colic. Liver function tests are normal, lipase is normal, white count is normal, no suspicion for cholecystitis. Patient was also evaluated by my attending physician, Dr. Nolan, was likely symptoms are consistent with biliary colic, recommended to give IV Dyloject and a few pills of Percocet There is low suspicion for abdominal emergencies at this time. Patients abdominal exam is normal at this time. Patients radiology exam does not show any abdominal emergencies at this time. There is low suspicion for appendicitis, cholecystitis , abdominal aortic aneurysms or peritonitis at this time. There is low suspicion for sepsis. Patient appears well and is hemodynamically stable. She also has urinary tract infection will be treated with a different antibiotic since patient's urine is infected after taking Macrobid. No symptoms of pyelonephritis. Disposition: Home. Condition: Stable Prescription Percocet, Zofran, Cipro Instructions: Patient is advised to take medications as prescribed. Patient is advised to rest, increase fluid intake and do low fat diet, see general surgeon for possible removal of the gallbladder. Patient is advised that if symptoms are worse, severe abdominal pain, uncontrolled vomiting, high fever, severe flank pain, worst signs and symptoms, to return to the emergency department immediately. Otherwise, patient can follow up with primary care doctor in 5-7 days. Departure Diagnosis: Primary Impression: Biliary colic Additional Impression: UTI (urinary tract infection) Urinary tract infection type: acute cystitis Hematuria presence: without hematuria Qualified Code: N30.00 - Acute cystitis without hematuria Condition: Stable Patient Instructions: Biliary Colic With Gallstone (Confirmed) Additional Instructions: Patient is advised to take medications as prescribed. Patient is advised to rest, increase fluid intake and do low fat diet, see general surgeon for possible removal of the gallbladder. Patient is advised that if symptoms are worse, severe abdominal pain, uncontrolled vomiting, high fever, severe flank pain, worst signs and symptoms, to return to the emergency department immediately. Otherwise, patient can follow up with primary care doctor in 5-7 days. TOM CORNELIUS NP Oct 26, 2016 21:00
--- NOTE | 2016-10-26 22:11 | RADRPT ---
PROCEDURE: ULTRASOUND LIMITED ABDOMEN CLINICAL INDICATION: 26-year-old female with right upper quadrant pain. TECHNIQUE: Multiple sonographic of the right upper quadrant of the abdomen were obtained. The imag es were reviewed on a PACS workstation. COMPARISON: Right upper quadrant ultrasound October 22, 2016. FINDINGS: The pancreas is partially visualized and is otherwise normal. The liver displays normal echogenicity. The liver measures 15.7 cm in length. No evidence of intrah epatic biliary ductal dilatation is seen. The portal and hepatic veins are unremarkable. The gallbladder contains echogenic sludge and shadowing stones. The gallbladder wall is thickened m easuring 4.4 mm.. No pericholecystic fluid is seen. The common bile duct measures 3.0 mm and is not dilated. The right kidney displays normal echogenicity. The right kidney measures 10.8 x 4.9 x 3.9 cm. No ros iectasis or hydronephrosis is seen. No free fluid is seen. IMPRESSION: Cholelithiasis with thickened gallbladder wall. .Carlos Mejia MD, Date Time Electronically viewed and signed by .Carlos Mejia MD, on 10/26/2016 22:10 .M/
[2016-10-26] MEDS ORDERED: DICLOFENAC SODIUM 37.5 MG/ML VIAL IV STA (22:31)
[2016-10-26] MEDS ORDERED: OXYC-279 PO (22:36)
[2016-10-26] MEDS ORDERED: ONDA4TAB14 PO (22:36)
[2016-10-26] MEDS ORDERED: CIPR500T4 PO (22:37)
[2016-10-26 22:44] VITALS: BP 122/68; PULSE 66; RESP 18
== END 2016-10-26 23:03 | disposition home or self-care (01) ==
LOC: FTE 19:23
DX: R10.84 Generalized abdominal pain (principal); N30.00 Acute cystitis without hematuria; F17.210 Nicotine dependence, cigarettes, uncomplicated; R11.2 Nausea with vomiting, unspecified
CPT/HCPCS: 36415; 76705; 80053; 83690; 85025; 96374; 96375; 96376; J2270; J2405; J7030; Z7502; Z7610; 81001; 81003

== ENCOUNTER 2017-03-03 19:30 | Emergency (ER) | payer OTHER ==
[~2017-03-03] VITALS: Ht 157.5 cm; Wt 91.8 kg
[~2017-03-03 19:30] MED LIST changes: +CIPR500T4 PO; +ONDA4TAB14 PO; +OXYC-279 PO
[2017-03-03 22:04] VITALS: Ht 157.5 cm; Wt 91.8 kg
[2017-03-03] MEDS ORDERED: SOD CHLORIDE 0.9% 1,000 ML IV STA (23:08)
[2017-03-03] MEDS ORDERED: morphine 4 MG/ML VIAL IV STA (23:08)
[2017-03-03] MEDS ORDERED: ONDANSETRON 4 MG INJ IV STA (23:08)
--- NOTE | 2017-03-03 23:33 | ERD ---
ER Documentation Chief Complaint Date/Time DATE: 03/03/17 TIME: 23:29 Chief Complaint flank pain x 3 days HPI 26-year-old female presents here in emergency department for complaints of left flank pain for 3 days sharp pain 6/10 scale, is worse upon movement. Patient denies any trauma and affected area. Patient denies any hematuria or dysuria. Patient denies any fever or chills. Patient denies any numbness or tingling. Patient denies any nausea or vomiting. Patient did not take any medications for pain. ROS All systems reviewed and are negative except as per history of present illness. Medications Home Meds Active Scripts Ciprofloxacin Hcl* (Ciprofloxacin Hcl*) 500 Mg Tablet, 500 MG PO BID for 7 Days , TAB Prov:TOM CORNELIUS NP 10/26/16 Ondansetron (Ondansetron Odt) 4 Mg Tab.rapdis, 4 MG PO Q8 Y for NAUSEA AND/OR VOMITING, #30 TAB Prov:TMO CORNELIUS NP 10/26/16 Oxycodone HCl/Acetaminophen (Percocet 5-325 mg Tablet) 1 Each Tablet, 1 EACH PO Q6 Y for SEVERE PAIN LEVEL 7-10, #7 TAB Prov:TOM CORNELIUS NP 10/26/16 Nitrofurantoin Monohyd Macrocr* (Macrobid*) 100 Mg Capsr, 100 MG PO BID for 7 Days, CAP Prov:MARITZA DOWNING PA-C 10/22/16 Ondansetron Hcl* (Zofran*) 4 Mg Tablet, 4 MG PO Q6H for NAUSEA AND/OR VOMITING, #30 TAB Prov:MARITZA DOWNING-C 10/22/16 Hydrocodone/Acetaminophen ([place] 5-325 Tablet) 1 Each Tablet, 1 TAB PO Q6H Y for PAIN, #5 TAB Prov:MARITZA DOWNING-C 10/22/16 Acetaminophen* (Tylenol*) 325 Mg Tablet, 1 TAB PO Q6 Y for PAIN AND OR ELEVATED TEMP, #20 TAB Prov:ENEDINA BARNETT NP 08/31/16 Nitrofurantoin Monohyd Macrocr* (Macrobid*) 100 Mg Capsr, 100 MG PO BID for 5 Days, CAP Prov:ENEDINA BARNETT NP 08/31/16 Allergies Allergies: Coded Allergies: No Known Allergy (Unverified , 08/31/16) PMhx/Soc History of Surgery: No Anesthesia Reaction: No Hx Neurological Disorder: No Hx Respiratory Disorders: No Hx Cardiac Disorders: No Hx Psychiatric Problems: Yes (SCHIZOPRENIA, BI-POLAR, sz disorder ) Hx Miscellaneous Medical Probl: Yes (GALLSTONES) Hx Alcohol Use: No (former) Hx Substance Use: No (former) Hx Tobacco Use: Yes (Daily cigarette use) Smoking Status: Current every day smoker FmHx Family History: No coronary disease, No diabetes, No other Physical Exam Vitals Vital Signs Date Time Temp Pulse Resp B/P Pulse Ox O2 Delivery O2 Flow Rate FiO2 03/03/17 22:04 98.8 100 18 124/71 100 Physical Exam GENERAL: The patient is well developed and appropriate for usual state of health, in no apparent distress. CHEST: Clear to auscultation bilaterally. There are no rales, wheezes or rhonchi. HEART: Regular rate and rhythm. No murmurs, clicks, rubs or gallops. No S3 or S4. ABDOMEN: Soft, nontender and nondistended. Good bowel sounds. No rebound or guarding. No gross peritonitis. No gross organomegaly or masses. No Panda sign or McBurney point tenderness. BACK: No midline or flank tenderness. EXTREMITIES: Equal pulses bilaterally. There is no peripheral clubbing, cyanosis or edema. No focal swelling or erythema. Full range of motion. Grossly neurovascularly intact. NEURO: Alert and oriented. Cranial nerves 2-12 intact. Motor strength in all 4 extremities with 5/5 strength. Sensation grossly intact. Normal speech and gait. SKIN: There is no apparent rash or petechia. The skin is warm and dry. HEMATOLOGIC AND LYMPHATIC: There is no evidence of excessive bruising or lymphedema. No gross cervical, axillary, or inguinal lymphadenopathy. Result Diagram: 03/03/17 4397 03/03/17 2920 Results 24 hrs Laboratory Tests Test 03/03/17 23:08 03/03/17 23:34 03/03/17 23:35 Urine Color YELLOW Urine Clarity SLIGHTLY CLOUDY Urine pH 6.0 Urine Specific [place] 1.029 Urine Ketones TRACEmg/dL Urine Nitrite NEGATIVEmg/dL Urine Bilirubin NEGATIVEmg/dL Urine Urobilinogen 2+mg/dL Urine Leukocyte Esterase NEGATIVELeu/ul Urine Microscopic RBC 0/HPF Urine Microscopic WBC 2/HPF Urine Squamous Epithelial Cells FEW/HPF Urine Mucus FEW/HPF Urine Hemoglobin NEGATIVEmg/dL Urine Glucose NEGATIVEmg/dL Urine Total Protein NEGATIVEmg/dl Sodium Level 142mmol/L Potassium Level 3.9mmol/L Chloride Level 98mmol/L Carbon Dioxide Level 29mmol/L Anion Gap 19 Blood Urea Nitrogen 7mg/dl Creatinine 0.60mg/dl Glucose Level 71mg/dl Calcium Level 9.3mg/dl Total Bilirubin 0.1mg/dl Direct Bilirubin 0.00mg/dl Indirect Bilirubin 0.1mg/dl Aspartate Amino Transf (AST/SGOT) 26IU/L Alanine Aminotransferase (ALT/SGPT) 54IU/L Alkaline Phosphatase 89IU/L Total Protein 7.6g/dl Albumin 4.0g/dl Globulin 3.60g/dl Albumin/Globulin Ratio 1.11 Lipase 53U/L White Blood Count 9.610^3/ul Red Blood Count 4.1510^6/ul Hemoglobin 13.6g/dl Hematocrit 39.9% Mean Corpuscular Volume 96.1fl Mean Corpuscular Hemoglobin 32.8pg Mean Corpuscular Hemoglobin Concent 34.1g/dl Red Cell Distribution Width 12.5% Platelet Count 64178^3/UL Mean Platelet Volume 9.1fl Neutrophils % 45.2% Lymphocytes % 44.5% Monocytes % 7.4% Eosinophils % 2.1% Basophils % 0.5% Nucleated Red Blood Cells % 0.0/100WBC Neutrophils # (Manual) 4.310^3/ul Lymphocytes # 4.310^3/ul Monocytes # 0.710^3/ul Eosinophils # 0.210^3/ul Basophils # 0.110^3/ul Nucleated Red Blood Cells # 0.010^3/ul Current Medications Medications (Trade) Dose Ordered Sig/Walter Route PRN Reason Start Time Stop Time Status Last Admin Dose Admin Sodium Chloride (NS) 1,000 ml @ 1,000 mls/hr Q1H STAT IV 03/03/17 23:08 03/04/17 00:07 DC 03/03/17 23:40 Morphine Sulfate (morphine) 4 mg ONCE STAT IV 03/03/17 23:08 03/03/17 23:10 DC 03/03/17 23:39 Ondansetron HCl (Zofran Inj) 4 mg ONCE STAT IV 03/03/17 23:08 03/03/17 23:10 DC 03/03/17 23:39 Patient was given medication for pain here in emergency department, after treatment, patient verbalized feeling much better. Patient's pain is improved.Patient was given Zofran here in the emergency department. After treatment, patient was able to tolerate po fluids here in the emergency department without any vomiting. There is no signs and symptoms of dehydration. Normal saline IV bolus was given here in emergency department for rehydration, patient tolerated IV fluids. PROCEDURE: CT ABDOMEN/PELVIS WITHOUT CONTRAST CLINICAL INDICATION: 26-year-old female with abdominal pain. TECHNIQUE: The study was performed utilizing a [employer] 64-slice CT scanner. Direct axial sections were obtained through the abdomen and pelvis without the use of intravenous contrast material. Sagittal and coronal reformations were obtained. One or more of the following dose reduction techniques were utilized: automated exposure control, adjustment of the mA and/ or kV according to patient's size or use of iterative reconstruction technique. The images were reviewed on a PACS workstation. CTD/vol = 17.3 mGy; Total Exam DLP = 1114.0 mGy-cm. COMPARISON: Right upper quadrant ultrasound October 26, 2016. FINDINGS: The lung bases are unremarkable. There is no evidence for significant pleural effusion. The liver has a normal size and contour without focal areas of abnormal density. No intrahepatic nor extrahepatic biliary ductal dilatation is seen. The gallbladder is without evidence for calcified stones or significant wall thickening however there are foci of increased density within the gallbladder suggestive of noncalcified gallstones. The pancreas is without areas of abnormal attenuation. The spleen is identified and has a normal size without abnormal density. The adrenal glands are unremarkable. The kidneys are without abnormal density. No hydroureteronephrosis nor nephroureterolithiasis is evident. The urinary bladder contains minimal urine. The stomach is filled with particular material. There is mild retained stool within the ascending and transverse colon without obstruction. The appendix is visualized and is without abnormal thickening or surrounding inflammatory reaction. The uterus is anteflexed. There is no significant free fluid. Shotty mesenteric lymph nodes are present. The aortoiliac vessels are without aneurysmal dilatation. The osseous structures are intact. IMPRESSION: 1. No CT evidence for obstructive uropathy or renal calculi. 2. Particular material within the stomach. 3. Mild retained stool within the proximal colon without obstruction. 4. No CT evidence for appendicitis. 5. Cholelithiasis as seen on the patient's prior ultrasound from October 26, 2016. 6. Shotty mesenteric lymph nodes. .Carlos Mejia MD, MD Date Time Electronically viewed and signed by .Carlos Mejia MD, MD on 03/04/2017 00:41 .M/ CC: TOM CORNELIUS [employer] Procedures/MDM Medical Decision Making: patient's left flank pain nonspecific at this time, can be musculoskeletal pain. Patient also has constipation may be also causing the pain. Patient has cholelithiasis, has history of this, no liver function test elevation, light is normal, no suspicion for choledocholithiasis or acute cholecystitis. There is low suspicion for abdominal emergencies at this time. Patients abdominal exam is normal at this time. Patients radiology exam does not show any abdominal emergencies at this time. There is low suspicion for appendicitis, cholecystitis, abdominal aortic aneurysms or peritonitis at this time. There is low suspicion for sepsis. Patient appears well and is hemodynamically stable. Disposition: Home. Condition: Stable Prescription flexeril, ibuprofen, [place] Instructions: Patient is advised to take medications as prescribed. Patient is advised to rest, increase fluid intake and do brat diet for next 1-2 days and progress as tolerated. Patient is advised that if symptoms are worse, severe abdominal pain, uncontrolled vomiting, high fever, severe flank pain, worst signs and symptoms, to return to the emergency department immediately. Otherwise, patient can follow up with primary care doctor in 5-7 days. Departure Diagnosis: Primary Impression: Flank pain Condition: Stable Patient Instructions: Flank Pain, Uncertain Cause Additional Instructions: Patient is advised to take medications as prescribed. Patient is advised to rest , increase fluid intake and do brat diet for next 1-2 days and progress as tolerated. Patient is advised that if symptoms are worse, severe abdominal pain , uncontrolled vomiting, high fever, severe flank pain, worst signs and symptoms , to return to the emergency department immediately. Otherwise, patient can follow up with primary care doctor in 5-7 days. TOM CORNELIUS. KURTIS Mar 03, 2017 23:33
[2017-03-03 23:58] LABS: BASOPHIL # 0.1 10^3/ul (0.0-0.1); BASOPHILS % 0.5 % (0.0-2.0); EOSINOPHILS # 0.2 10^3/ul (0.0-0.5); EOSINOPHILS % 2.1 % (0.0-7.0); HEMATOCRIT 39.9 % (37.0-47.0); HEMOGLOBIN 13.6 g/dl (12.0-16.0); LYMPHOCYTES # 4.3 10^3/ul (0.8-2.9); LYMPHOCYTES % 44.5 % (15.0-51.0); MEAN CORPUSCULAR HEMOGLOBIN 32.8 pg (29.0-33.0); MEAN CORPUSCULAR HGB CONC 34.1 g/dl (32.0-37.0); MEAN CORPUSCULAR VOLUME 96.1 fl (82.0-101.0); MEAN PLATELET VOLUME 9.1 fl (7.4-10.4); MONOCYTE # 0.7 10^3/ul (0.3-0.9); MONOCYTES % 7.4 % (0.0-11.0); NEUTROPHILS % 45.2 % (39.0-77.0); PLATELET COUNT 341 10^3/UL (140-415); RED BLOOD COUNT 4.15 10^6/ul (4.20-5.40); RED CELL DISTRIBUTION WIDTH 12.5 % (11.5-14.5); WHITE BLOOD COUNT 9.6 10^3/ul (4.8-10.8)
[2017-03-04 00:02] LABS: ADD UMIC NO; UR ASCORBIC ACID 40 mg/dL (NEGATIVE); UR BILIRUBIN (Dip) NEGATIVE (NEGATIVE); UR BLOOD (Dip) NEGATIVE (NEGATIVE); UR CLARITY SLIGHTLY CLOUDY (CLEAR); UR COLOR YELLOW (YELLOW); UR GLUCOSE (Dip) NEGATIVE (NEGATIVE); UR KETONES (Dip) TRACE mg/dL (NEGATIVE); UR LEUKOCYTE ESTERASE (Dip) NEGATIVE Leu/ul (NEGATIVE); UR MUCUS FEW /HPF (NONE SEEN); UR NITRITE (Dip) NEGATIVE (NEGATIVE); UR RBC 0 /HPF (0-5); UR SPECIFIC GRAVITY (Dip) 1.029 (1.003-1.030); UR SQUAMOUS EPITHELIAL CELL FEW /HPF (FEW); UR TOTAL PROTEIN (Dip) NEGATIVE (NEGATIVE); UR UROBILINOGEN (Dip) 2+ mg/dL (NEGATIVE)
[2017-03-04 00:26] LABS: ALBUMIN/GLOBULIN RATIO 1.11; BILIRUBIN,INDIRECT 0.1 mg/dl (0-1.1); BILIRUBIN,TOTAL 0.1 mg/dl (0.2-1.3); CALCIUM 9.3 mg/dl (8.4-10.2); CREATININE 0.6 mg/dl (0.44-1.00); POTASSIUM 3.9 mmol/L (3.5-5.1); TOTAL PROTEIN 7.6 g/dl (6.1-8.1)
--- NOTE | 2017-03-04 00:41 | RADRPT ---
PROCEDURE: CT ABDOMEN/PELVIS WITHOUT CONTRAST CLINICAL INDICATION: 26-year-old female with abdominal pain. TECHNIQUE: The study was performed utilizing a [employer] VCT 64-slice CT scanner. Direct axia l sections were obtained through the abdomen and pelvis without the use of intravenous contrast mate rial. Sagittal and coronal reformations were obtained. One or more of the following dose reduction t echniques were utilized: automated exposure control, adjustment of the mA and/or kV according to pat ient's size or use of iterative reconstruction technique. The images were reviewed on a PACS workst at[employer]. CTD/vol = 17.3 mGy; Total Exam DLP = 1114.0 mGy-cm. COMPARISON: Right upper quadrant ultrasound October 26, 2016. FINDINGS: The lung bases are unremarkable. There is no evidence for significant pleural effusion. The liver has a normal size and contour without focal areas of abnormal density. No intrahepatic nor extrahepa tic biliary ductal dilatation is seen. The gallbladder is without evidence for calcified stones or s ignificant wall thickening however there are foci of increased density within the gallbladder sugges tive of noncalcified gallstones. The pancreas is without areas of abnormal attenuation. The spleen is identified and has a normal size without abnormal density. The adrenal glands are unremarkable. T he kidneys are without abnormal density. No hydroureteronephrosis nor nephroureterolithiasis is evid ent. The urinary bladder contains minimal urine. The stomach is filled with particular material. The re is mild retained stool within the ascending and transverse colon without obstruction. The append ix is visualized and is without abnormal thickening or surrounding inflammatory reaction. The uterus is anteflexed. There is no significant free fluid. Shotty mesenteric lymph nodes are presen t. The aortoiliac vessels are without aneurysmal dilatation. The osseous structures are intact. IMPRESSION: 1. No CT evidence for obstructive uropathy or renal calculi. 2. Particular material within the stomach. 3. Mild retained stool within the proximal colon without obstruction. 4. No CT evidence for appendicitis. 5. Cholelithiasis as seen on the patient's prior ultrasound from October 26, 2016. 6. Shotty mesenteric lymph nodes. .Carlos Mejia MD, Date Time Electronically viewed and signed by .Carlos Mejia MD, MD on 03/04/2017 00:41 .M/
[2017-03-04] MEDS ORDERED: HYDR-906 PO (01:01)
[2017-03-04] MEDS ORDERED: DOCU-144 PO (01:01)
[2017-03-04] MEDS ORDERED: IBUP-1542 PO (01:01)
[2017-03-04] MEDS ORDERED: CYCL-319 PO (01:01)
[2017-03-04 01:26] VITALS: BP 105/56; PULSE 74; RESP 16; TEMP 98.9
== END 2017-03-04 01:27 | disposition home or self-care (01) ==
LOC: FTE 19:30
DX: R10.9 Unspecified abdominal pain (principal); F17.210 Nicotine dependence, cigarettes, uncomplicated
CPT/HCPCS: 36415; 74176; 80053; 81001; 81003; 83690; 85025; 96374; 96375; J2270; J2405; J7030; Z7502

== ENCOUNTER 2017-06-08 20:41 | Emergency (ER) | payer OTHER ==
[~2017-06-08] VITALS: Ht 175.3 cm; Wt 87.0 kg
[~2017-06-08 20:41] MED LIST changes: +CYCL-319 PO; +DOCU-144 PO; +IBUP-1542 PO
[2017-06-08 20:42] VITALS: Ht 175.3 cm; Wt 87.0 kg
[2017-06-08 21:39] LABS: BASOPHIL # 0.1 10^3/ul (0.0-0.1); BASOPHILS % 0.4 % (0.0-2.0); EOSINOPHILS # 0.1 10^3/ul (0.0-0.5); EOSINOPHILS % 0.7 % (0.0-7.0); HEMATOCRIT 39.6 % (37.0-47.0); HEMOGLOBIN 13.6 g/dl (12.0-16.0); LYMPHOCYTES # 3.3 10^3/ul (0.8-2.9); MEAN CORPUSCULAR HEMOGLOBIN 32.8 pg (29.0-33.0); MEAN CORPUSCULAR HGB CONC 34.3 g/dl (32.0-37.0); MEAN CORPUSCULAR VOLUME 95.4 fl (82.0-101.0); MEAN PLATELET VOLUME 9.1 fl (7.4-10.4); MONOCYTE # 0.7 10^3/ul (0.3-0.9); MONOCYTES % 5.9 % (0.0-11.0); NEUTROPHIL # 7.7 10^3/ul (1.6-7.5); NEUTROPHILS % 64.6 % (39.0-77.0); PLATELET COUNT 332 10^3/UL (140-415); RED BLOOD COUNT 4.15 10^6/ul (4.20-5.40); RED CELL DISTRIBUTION WIDTH 12.2 % (11.5-14.5); WHITE BLOOD COUNT 11.9 10^3/ul (4.8-10.8)
--- NOTE | 2017-06-08 21:39 | RADRPT ---
PROCEDURE: First trimester obstetrical ultrasound. CLINICAL INDICATION: , pelvic pain TECHNIQUE: Transabdominal davila scale and color Doppler ultrasound of the uterus of less than 14 weeks gestation (first trimester). COMPARISON: US PELVIS 08/31/2016 FINDINGS: A single intrauterine gestation is present. No evidence of extrauterine gestation. Mean sac diameter: 2.51 cm [place]-rump length: 1.06 cm heart rate: 154 Beats per minute No evidence of subchorionic hemorrhage. Free fluid: None. IMPRESSION: Single intrauterine gestation with an estimated gestational age of 7 weeks 3 days by ultrasound janki mehta. RPTAT: AADD .Brant Noel MD, MD Date Time Electronically viewed and signed by .Brant Noel MD, on 06/08/2017 21:38 .B/
[2017-06-08 21:44] LABS: ADD UMIC NO; UR ASCORBIC ACID NEGATIVE (NEGATIVE); UR BILIRUBIN (Dip) NEGATIVE (NEGATIVE); UR BLOOD (Dip) NEGATIVE (NEGATIVE); UR CLARITY CLEAR (CLEAR); UR COLOR YELLOW (YELLOW); UR GLUCOSE (Dip) NEGATIVE (NEGATIVE); UR KETONES (Dip) TRACE mg/dL (NEGATIVE); UR LEUKOCYTE ESTERASE (Dip) NEGATIVE Leu/ul (NEGATIVE); UR NITRITE (Dip) NEGATIVE (NEGATIVE); UR SPECIFIC GRAVITY (Dip) 1.008 (1.003-1.030); UR TOTAL PROTEIN (Dip) NEGATIVE (NEGATIVE); UR UROBILINOGEN (Dip) NEGATIVE (NEGATIVE)
[2017-06-08 22:02] LABS: ALBUMIN 4.4 g/dl (3.3-4.9); ALBUMIN/GLOBULIN RATIO 1.29; BILIRUBIN,INDIRECT 0.2 mg/dl (0-1.1); BILIRUBIN,TOTAL 0.2 mg/dl (0.2-1.3); CALCIUM 9.5 mg/dl (8.4-10.2); CREATININE 0.51 mg/dl (0.44-1.00); POTASSIUM 3.7 mmol/L (3.5-5.1); TOTAL PROTEIN 7.8 g/dl (6.1-8.1)
--- NOTE | 2017-06-08 23:23 | ERD ---
ER Documentation Chief Complaint Chief Complaint c/o abd pain x 1 day. (+) 7 wks preg. HPI Patient is a 27-year-old female who is approximately 7 weeks with 3 miscarriages complaining of abdominal pain that began today. She has nausea vomiting but she states that is normal for her during . No urinary symptoms. No fever. No diarrhea. Pre-ruben vitamins. Denies any vaginal bleeding. ROS All systems reviewed and are negative except as per history of present illness. Medications Home Meds Active Scripts Cyclobenzaprine Hcl* (Cyclobenzaprine Hcl*) 10 Mg Tablet, 10 MG PO TID, #15 TAB Prov:TOM CORNELIUS NP 03/04/17 Docusate Sodium* (Colace*) 100 Mg Capsule, 100 MG PO TID, #30 CAP Prov:TOM CORNELIUS NP 03/04/17 Hydrocodone/Acetaminophen ([place] 5-325 Tablet) 1 Each Tablet, 1 TAB PO Q6H Y for SEVERE PAIN LEVEL 7-10, #20 TAB Prov:TOM CORNELIUS NP 03/04/17 Ibuprofen* (Motrin*) 600 Mg Tab, 600 MG PO Q6H Y for PAIN AND OR ELEVATED TEMP, #30 TAB Prov:TOM CORNELIUS NP 03/04/17 Ciprofloxacin Hcl* (Ciprofloxacin Hcl*) 500 Mg Tablet, 500 MG PO BID for 7 Days , TAB Prov:TOM CORNELIUS NP 10/26/16 Ondansetron (Ondansetron Odt) 4 Mg Tab.rapdis, 4 MG PO Q8 Y for NAUSEA AND/OR VOMITING, #30 TAB Prov:TOM CORNELIUS NP 10/26/16 Oxycodone HCl/Acetaminophen (Percocet 5-325 mg Tablet) 1 Each Tablet, 1 EACH PO Q6 Y for SEVERE PAIN LEVEL 7-10, #7 TAB Prov:TOM CORNELIUS NP 10/26/16 Nitrofurantoin Monohyd Macrocr* (Macrobid*) 100 Mg Capsr, 100 MG PO BID for 7 Days, CAP Prov:MARITZA DOWNING PA-C 10/22/16 Ondansetron Hcl* (Zofran*) 4 Mg Tablet, 4 MG PO Q6H for NAUSEA AND/OR VOMITING, #30 TAB Prov:MARITZA DOWNING PA-C 10/22/16 Hydrocodone/Acetaminophen ([place] 5-325 Tablet) 1 Each Tablet, 1 TAB PO Q6H Y for PAIN, #5 TAB Prov:MARITZA DOWNING PA-C 10/22/16 Acetaminophen* (Tylenol*) 325 Mg Tablet, 1 TAB PO Q6 Y for PAIN AND OR ELEVATED TEMP, #20 TAB Prov:ENEDINA BARNETT NP 08/31/16 Nitrofurantoin Monohyd Macrocr* (Macrobid*) 100 Mg Capsr, 100 MG PO BID for 5 Days, CAP Prov:ENEDINA BARNETT NP 08/31/16 Allergies Allergies: Coded Allergies: No Known Allergy (Unverified , 08/31/16) PMhx/Soc Medical and Surgical Hx: pt denies Medical Hx, pt denies Surgical Hx History of Surgery: No Anesthesia Reaction: No Hx Neurological Disorder: No Hx Respiratory Disorders: No Hx Cardiac Disorders: No Hx Psychiatric Problems: Yes (SCHIZOPRENIA, BI-POLAR, sz disorder ) Hx Miscellaneous Medical Probl: Yes (GALLSTONES) Hx Alcohol Use: No Hx Substance Use: No Hx Tobacco Use: No Smoking Status: Never smoker FmHx Family History: No diabetes Physical Exam Vitals Vital Signs Date Time Temp Pulse Resp B/P Pulse Ox O2 Delivery O2 Flow Rate FiO2 06/08/17 20:42 98.4 114 20 119/80 100 Physical Exam INITIAL VITAL SIGNS: Reviewed by me GENERAL: Awake, alert and oriented x 4, well appearing, nontoxic, speaking in full sentences. No acute distress HEAD: Atraumatic RESPIRATORY: Clear to auscultation bilaterally. Symmetric chest wall rise. No wheezing or rales. No accessory muscle use. CV: Regular rate and rhythm. No murmurs, rubs, or gallops. ABDOMEN: Soft, non-distended. Nontender. Negative [place]. Negative McBurneys point tenderness. No CVA tenderness bilaterally. No guarding. No rebound. : Deffered. Result Diagram: 06/08/17212306/08/172123 Results 24 hrs Laboratory Tests Test 06/08/17 21:13 06/08/17 21:24 Urine Color YELLOW Urine Clarity CLEAR Urine pH 6.0 Urine Specific [place] 1.008 Urine Ketones TRACEmg/dL Urine Nitrite NEGATIVEmg/dL Urine Bilirubin NEGATIVEmg/dL Urine Urobilinogen NEGATIVEmg/dL Urine Leukocyte Esterase NEGATIVELeu/ul Urine Hemoglobin NEGATIVEmg/dL Urine Glucose NEGATIVEmg/dL Urine Total Protein NEGATIVEmg/dl White Blood Count 11.910^3/ul Red Blood Count 4.1510^6/ul Hemoglobin 13.6g/dl Hematocrit 39.6% Mean Corpuscular Volume 95.4fl Mean Corpuscular Hemoglobin 32.8pg Mean Corpuscular Hemoglobin Concent 34.3g/dl Red Cell Distribution Width 12.2% Platelet Count 58135^3/UL Mean Platelet Volume 9.1fl Neutrophils % 64.6% Lymphocytes % 28.0% Monocytes % 5.9% Eosinophils % 0.7% Basophils % 0.4% Nucleated Red Blood Cells % 0.0/100WBC Neutrophils # 7.710^3/ul Lymphocytes # 3.310^3/ul Monocytes # 0.710^3/ul Eosinophils # 0.110^3/ul Basophils # 0.110^3/ul Nucleated Red Blood Cells # 0.010^3/ul Sodium Level 139mmol/L Potassium Level 3.7mmol/L Chloride Level 102mmol/L Carbon Dioxide Level 25mmol/L Anion Gap 16 Blood Urea Nitrogen 5mg/dl Creatinine 0.51mg/dl Glucose Level 85mg/dl Calcium Level 9.5mg/dl Total Bilirubin 0.2mg/dl Direct Bilirubin 0.00mg/dl Indirect Bilirubin 0.2mg/dl Aspartate Amino Transf (AST/SGOT) 111IU/L Alanine Aminotransferase (ALT/SGPT) 126IU/L Alkaline Phosphatase 94IU/L Total Protein 7.8g/dl Albumin 4.4g/dl Globulin 3.40g/dl Albumin/Globulin Ratio 1.29 Beta HCG, Quantitative 70625.0mIU/ml Procedures/[facility] 27-year-old female presents with abdominal pain during . No vaginal bleeding. The differential diagnosis includes but is not limited to threatened/ incomplete/inevitable/complete , ectopic , non- related bleeding, and others. Ultrasound shows no evidence of ectopic and shows normal IUP. Blood work grossly normal. Patient decided to elope in the emergency room before patient could be given any results of her tests. Departure Diagnosis: Primary Impression: Abdominal pain affecting Condition: Stable CHRISTIE GALDAMEZ PA-C Jun 08, 2017 23:23
== END 2017-06-08 23:30 | disposition left against medical advice (07) ==
LOC: FTE 20:41
DX: O26.891 Other specified pregnancy related conditions, first trimester (principal); R10.9 Unspecified abdominal pain; Z3A.01 Less than 8 weeks gestation of pregnancy
CPT/HCPCS: 36415; 76801; 80053; 81003; 84702; 85025; 86900; 86901

== ENCOUNTER → 2017-07-01 | Emergency (ER) | payer OTHER ==
[~2017-07-01] VITALS: Ht 175.3 cm; Wt 87.5 kg
[2017-07-01 01:23] VITALS: Ht 175.3 cm; Wt 87.5 kg
== END | disposition left against medical advice (07) ==
LOC: FTE 01:15
DX: Z53.21 Procedure and treatment not carried out due to patient leaving prior to being seen by health care provider (principal)

== ENCOUNTER 2017-07-08 09:48 | Emergency (ER) | END 2017-07-08 13:25 | disposition home or self-care (01) ==

== ENCOUNTER 2017-07-31 01:30 | Emergency (ER) | END 2017-07-31 04:44 | disposition home or self-care (01) ==

== ENCOUNTER 2017-09-03 11:02 | Emergency (ER) | END 2017-09-03 13:23 | disposition left against medical advice (07) ==

== ENCOUNTER 2017-09-24 12:52 | Outpatient (CLI) | END 2017-09-24 15:44 | disposition home or self-care (01) ==

== ENCOUNTER 2017-11-02 21:13 | Outpatient (CLI) | END 2017-11-03 03:00 | disposition home or self-care (01) ==

== ENCOUNTER 2017-11-21 16:29 | Outpatient (CLI) | END 2017-11-21 18:15 | disposition home or self-care (01) ==

== ENCOUNTER 2017-12-04 07:36 | Outpatient (CLI) | END 2017-12-04 12:10 | disposition home or self-care (01) ==

== ENCOUNTER 2018-05-13 17:43 | Emergency (ER) | END 2018-05-13 18:53 | disposition left against medical advice (07) ==

== ENCOUNTER 2018-07-07 15:32 | Emergency (ER) | payer OTHER ==
[~2018-07-07] VITALS: Ht 177.8 cm; Wt 97.7 kg
[~2018-07-07 15:32] MED LIST changes: -ACET325T33 PO; -CIPR500T4 PO; -CYCL-319 PO; -DOCU-144 PO; +FER325 PO; +FOLI-49 PO; -HYDR-906 PO; -IBUP-1542 PO; -NITR-58 PO; -ONDA4TAB14 PO; -ONDA4TAB8 PO; -OXYC-279 PO; +PREN-93 PO
[2018-07-07 15:39] VITALS: Ht 177.8 cm; Wt 97.7 kg
[2018-07-07] MEDS ORDERED: PREN1COM10 PO (19:16)
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
[2018-07-07 20:16] VITALS: BP 118/74; PULSE 78; RESP 16
== END 2018-07-07 22:05 | disposition home or self-care (01) ==
LOC: E/R 15:32
DX: O20.0 Threatened abortion (principal); O9A.212 Injury, poisoning and certain other consequences of external causes complicating pregnancy, second trimester; Y04.8XXA Assault by other bodily force, initial encounter; Z3A.15 15 weeks gestation of pregnancy
CPT/HCPCS: 36415; 76801; 81025; 84702; 86900; 86901; Z7502

== ENCOUNTER 2019-01-07 07:43 | Inpatient (IN) | payer OTHER ==
[~2019-01-07] VITALS: Ht 172.7 cm; Wt 101.8 kg
[~2019-01-07 07:43] MED LIST changes: +PREN1COM10 PO
[2019-01-07 08:13] VITALS: Ht 172.7 cm; Wt 101.8 kg
[2019-01-07] MEDS ORDERED: LACTATED RINGER'S 1,000 ML IV PRN (09:08)
[2019-01-07 09:22] VITALS: BP 116/83; PULSE 89; RESP 20
[2019-01-07] MEDS ORDERED: METHYLERGONOVINE 0.2 MG INJ IM PRN (09:30)
[2019-01-07] MEDS ORDERED: AMPICILLIN 2 GM/NS (PMX) 100 ML IV ONE (09:30)
[2019-01-07] MEDS ORDERED: OXYTOCIN 30 UNITS/LR 500 ML IV PRN (09:30)
[2019-01-07] MEDS ORDERED: MISOPROSTOL 200 MCG TAB PR PRN (09:30)
[2019-01-07] MEDS ORDERED: OXYTOCIN 30 UNITS/LR 500 ML IV SCH ×3 (09:30)
[2019-01-07] MEDS ORDERED: CARBOPROST 250 MCG INJ IM PRN (09:30)
[2019-01-07] MEDS ORDERED: LIDOCAINE 1% (MPF) 30 ML INJ INJ PRN (09:30)
[2019-01-07] MEDS: LACTATED RINGER'S 1,000 ML IV SCH ×2 (11:38→18:12)
[2019-01-07] MEDS: AMPICILLIN 1 GM/NS (PMX) 50 ML IV SCH ×3 (16:28→20:23)
--- NOTE | 2019-01-07 17:14 | PREAC ---
Date/Time of Note Date/Time of Note DATE: 01/07/19 TIME: 17:13 Anesthesia Eval and Record Evaluation Time Pre-Procedure Interview DATE: 01/07/19 TIME: 17:13 Age 28 Sex female NPO: 8 hrs Preoperative diagnosis IUP Planned procedure L&D Epidural Past Medical History Past Medical History: Includes GI: Morbid obesity : : Surgery & Anesthesia Issues No known issue Meds Anticoagulation: No Beta Gaby within 24 hr: No Reason Beta Gaby not given: Pt. not on B-Gaby Active Scripts Cmb#95/Iron/Fa/Dha ( + DHA COMBO PACK) 1 Each Combo..pkg, 1 EACH PO every day, #90 Prov:ROSA ISELA JACOBSON DO 07/07/18 Reported Medications Ferrous Sulfate* (Ferrous Sulfate*) 325 Mg Tabec, 325 MG PO DAILY, TAB 07/31/17 Folic Acid* (Folic Acid*) 1 Mg Tablet, 1 MG PO DAILY, TAB 07/31/17 Vit No.124/Iron/FA ( Vitamin Tablet) 1 Each Tablet, 1 EACH PO, TAB 07/31/17 Current Medications Lactated Ringer's 1,000 ml @ 125 mls/hr Q8H IV Last administered on 01/07/19at 11:38; Admin Dose 125 MLS/HR; Start 01/07/19 at 09:08 Ampicillin 50 ml @ 100 mls/hr Q4H IV Last administered on 01/07/19at 16:28; Adm in Dose 100 MLS/HR; Start 01/07/19 at 13:30 Lidocaine (Xylocaine 1% (Mpf)) 30 ml ONCE PRN INJ .EPISIOTOMY; Start 01/07/19 at 09:30 Oxytocin/Lactated Ringer's 500 ml @ 500 mls/hr ONCE POST IV ; Start 01/07/19 at 09:30 Oxytocin/Lactated Ringer's 500 ml @ 125 mls/hr POST IV ; Start 01/07/19 at 09:30 Lactated Ringer's 1,000 ml @ 2,000 mls/hr Q30M PRN IV .ANESTHESIA Last administered on 01/07/19at 15:26; Admin Dose 2,000 MLS/HR; Start 01/07/19 at 09:08 Oxytocin/Lactated Ringer's 500 ml @ 0 mls/hr ONCE PRN IV .VAGINAL BLEEDING; Start 01/07/19 at 09:30 Methylergonovine Maleate (Methergine) 0.2 mg ONCE PRN IM .VAGINAL BLEEDING; Start 01/07/19 at 09:30 Carboprost Tromethamine (Hemabate) 250 mcg ONCE PRN IM .VAGINAL BLEEDING; Start 01/07/19 at 09:30 Misoprostol (Cytotec) 1,000 mcg ONCE PRN AL .VAGINAL BLEEDING; Start 01/07/19 at 09:30 Oxytocin/Lactated Ringer's 500 ml @ 0 mls/hr FOR INDUCTION IV Last administered on 01/07/19at 14:20; Admin Dose 2 MLS/HR; Start 01/07/19 at 09:30 Meds reviewed: Yes Allergies Coded Allergies: ondansetron (Verified Allergy, Unknown, 11/02/17) Allergies Reviewed: Yes Labs/Studies Labs Reviewed: Reviewed by anesthesiologist Result Diagram: 01/07/19 1125 Laboratory Tests 01/07/19 11:25 Blood Bank Test 01/07/19 11:25 Antibody Screen NEGATIVE Blood Type O NEGATIVE Rh Immune Globulin Candidate NO test: Positive Studies: ECG Pre-procedure Exam Last vitals Vital Signs Date Temp Pulse Resp B/P (MAP) Pulse Ox O2 O2 Flow FiO2 Time Delivery Rate 01/07/19 98.6 89 20 116/83 09:22 (94) Airway: Adequate mouth opening, Adequate thyromental dist Mallampati: Mallampati II Teeth: Normal Lung: Normal Heart: Normal ASA Physical Status ASA physical status: 2 Emergency: None Planned Anesthetic Neuraxial: Epidural Planned Pain Management Epidural, Parenteral pain med Pre-operative Attestations Prior to commencing anesthesia and surgery, the patient was re-evaluated, there was verification of: *The patient's identity *The results of appropriate recent lab work and preoperative vital signs *The above evaluation not changing prior to induction *Anesthetic plan, risk benefits, alternative and complications discussed with patient/family; questions answered; patient/family understands, accepts and wishes to proceed. SRIDHAR SEGAL MD Jan 07, 2019 17:14
[2019-01-07] MEDS ORDERED: DIPHENHYDRAMINE 50 MG INJ IV PRN (17:30)
[2019-01-07] MEDS ORDERED: NALOXONE (0.4 MG/ML) INJ IV PRN (17:30)
[2019-01-07] MEDS: FENTAnyl 2MCG/ML-ROPIV 0.2% 100 ML BAG EPI SCH (19:35)
[2019-01-08] VITALS (7 sets, daily range): BP systolic 111–135; BP diastolic 62–91; PULSE 69–73; RESP 18–22
[2019-01-08] MEDS: AMPICILLIN 1 GM/NS (PMX) 50 ML IV SCH ×2 (00:40→05:23)
[2019-01-08] MEDS: FENTAnyl 2MCG/ML-ROPIV 0.2% 100 ML BAG EPI SCH (01:37)
[2019-01-08] MEDS: LACTATED RINGER'S 1,000 ML IV SCH (03:12)
--- NOTE | 2019-01-08 06:53 | HP ---
Date/Time of Note Date/Time of Note DATE: 01/08/19 TIME: 06:52 OB - History Hx of Present Chief Complaint: term induced for IUGR : 4 Para: 3 Care: Good Care Ultrasounds: Normal mid trimester US Obstetrical Complications: None Medical Complications: None Past Family/Social History * Past Medical, Surgical, Family and Obstetric Histories reviewed from chart. OB Admission Exam Vital Signs Vital Signs Vital Signs Date Temp Pulse Resp B/P (MAP) Pulse Ox O2 O2 Flow FiO2 Time Delivery Rate 01/07/19 98.6 89 20 116/83 09:22 (94) Physical Exam HEENT: WNL Heart: Rhythm Normal Lungs: Clear, Equal Abdomen: WNL Extremities: Normal Reflexes: Normal Cervical Dilatation: 10cm Effacement: 100% Station: +3 Membranes: Ruptured Amniotic Fluid: Clear Heart Rate: 130's Accelerations: Accelerations Present Decelerations: No Decelerations Varibility: Marked Contractions on Admission: 6-10 Minutes Apart Intensity: Moderate Last 72 hours Lab Results CBC & BMP 01/07/19 11:25 OB Assessment/Plan Reason for admission: induction of labor Plan: Induction DENNIS LANE MD Jan 08, 2019 06:53
--- NOTE | 2019-01-08 06:54 | LDN ---
Date/Time of Note Date/Time of Note DATE: 01/08/19 TIME: 06:53 Delivery Summary Placenta Delivered: Spontaneously Meconium: none Episiotomy: No Estimated blood loss: 300 Sponge & Needle done & correct: Yes All needle counts correct: Yes Any foreign bodies felt in the: No DENNIS LANE MD Jan 08, 2019 06:54
--- NOTE | 2019-01-08 06:55 | DS ---
Date/Time of Note Date/Time of Note DATE: 01/08/19 TIME: 06:54 Discharge Summary Admission/Discharge Info Admit Date/Time Jan 07, 2019 at 07:43 Discharge Date/Time Discharge Diagnosis TERM PREG Patient Condition: Stable Hospital Course UNREMARKABLE Home Meds Reported Medications Ferrous Sulfate* (Ferrous Sulfate*) 325 Mg Tabec, 325 MG PO DAILY, TAB 07/31/17 Folic Acid* (Folic Acid*) 1 Mg Tablet, 1 MG PO DAILY, TAB 07/31/17 Vit No.124/Iron/FA ( Vitamin Tablet) 1 Each Tablet, 1 EACH PO, TAB 07/31/17 Discontinued Scripts Cmb#95/Iron/Fa/Dha ( + DHA COMBO PACK) 1 Each Combo..pkg, 1 EACH PO every day, #90 Prov:ROSA ISELA JACOBSON DO 07/07/18 Primary Care Provider Care Physician No Primary Pending Labs Laboratory Tests Test 01/07/19 08:30 01/07/19 11:25 01/08/19 05:28 Urine Color YELLOW (YELLOW) Urine Clarity CLOUDY (CLEAR) Urine pH 6.0 (5.0-9.0) Urine Specific 1.014 (1.003-1.030) [place] Urine Ketones NEGATIVE mg/dL (NEGATIVE) Urine Nitrite NEGATIVE mg/dL (NEGATIVE) Urine Bilirubin NEGATIVE mg/dL (NEGATIVE) Urine Urobilinogen NEGATIVE mg/dL (NEGATIVE) Urine Leukocyte 3+ Esterase Marcelo/ul (NEGATIVE) Urine Microscopic 12 /HPF (0-5) RBC Urine Microscopic 18 /HPF (0-5) WBC Urine Squamous MODERATE /HPF (FEW) Epithelial Cells Urine Bacteria FEW /HPF (NONE SEEN) Urine Hemoglobin NEGATIVE mg/dL (NEGATIVE) Urine Glucose NEGATIVE mg/dL (NEGATIVE) Urine Total NEGATIVE Protein mg/dl (NEGATIVE) Urine Opiates Negative (NEGATIVE) Screen Urine Barbiturates Negative (NEGATIVE) Urine Amphetamines Negative (NEGATIVE) Screen Urine Negative (NEGATIVE) Benzodiazepines Screen Urine Cocaine Negative (NEGATIVE) Screen Urine Cannabinoids Negative (NEGATIVE) White Blood Count 11.1 10^3/ul (4.8-10.8) Red Blood Count 4.01 10^6/ul (4.20-5.40 ) Hemoglobin 13.0 g/dl (12.0-16.0) Hematocrit 38.6 % (37.0-47.0) Mean Corpuscular 96.3 Volume fl (82.0-101.0) Mean Corpuscular 32.4 Hemoglobin pg (29.0-33.0) Mean Corpuscular 33.7 Hemoglobin Concent g/dl (32.0-37.0) Red Cell 13.1 % (11.5-14.5) Distribution Width Platelet Count 317 10^3/UL (140-415) Mean Platelet 9.4 fl (7.4-10.4) Volume Immature 1.400 Granulocytes % % (0.001-0.429) Neutrophils % 67.5 % (39.0-77.0) Lymphocytes % 24.6 % (15.0-51.0) Monocytes % 4.9 % (0.0-11.0) Eosinophils % 1.1 % (0.0-7.0) Basophils % 0.5 % (0.0-2.0) Nucleated Red Blood 0.0 Cells % /100WBC (0.0-0.0) Immature 0.160 Granulocytes # 10^3/ul (0.0-0.031 ) Neutrophils # 7.5 10^3/ul (1.6-7.5) Lymphocytes # 2.7 10^3/ul (0.8-2.9) Monocytes # 0.6 10^3/ul (0.3-0.9) Eosinophils # 0.1 10^3/ul (0.0-0.5) Basophils # 0.1 10^3/ul (0.0-0.1) Nucleated Red Blood 0.0 Cells # 10^3/ul (0.0-0.0) Prothrombin Time 11.5 Sec (11.9-14.9) Prothrombin Time 0.9 Ratio INR International 0.83 Normalized Ratio Activated 28.7 Partial Thromboplas Sec (23.0-35.0) t Time Rapid Plasma NONREACTIVE (NR) Reagin Hepatitis B Surface NEGATIVE (NEGATIVE Antigen ) Lab Scanned Report REFERENCE LAB [id number] DENNIS LANE MD Jan 08, 2019 06:55
[2019-01-08] MEDS ORDERED: LACTATED RINGER'S 1,000 ML IV* SCH (08:37)
[2019-01-08] MEDS ORDERED: IBUPROFEN 600 MG TAB PO STA (08:37)
[2019-01-08] MEDS ORDERED: OXYTOCIN 30 UNITS/LR 500 ML IV SCH (08:37)
[2019-01-08] MEDS ORDERED: BENZOCAINE 20% 56 ML SPRAY TOP PRN (09:00)
[2019-01-08] MEDS ORDERED: SENNA/DOCUSATE NA (8.6MG/50MG) TAB PO PRN (09:00)
[2019-01-08] MEDS ORDERED: MAGNESIUM HYDROXIDE 30ML CUP PO PRN (09:00)
[2019-01-08] MEDS ORDERED: CARBOPROST 250 MCG INJ IM PRN (09:00)
[2019-01-08] MEDS ORDERED: ACETAMINOPHEN 325 MG TAB PO PRN (09:00)
[2019-01-08] MEDS ORDERED: ZOLPIDEM 5 MG TAB PO PRN (09:00)
[2019-01-08] MEDS ORDERED: DIPHENHYDRAMINE 25 MG CAP PO PRN (09:00)
[2019-01-08] MEDS ORDERED: MISOPROSTOL 200 MCG TAB PR PRN (09:00)
[2019-01-08] MEDS ORDERED: LANOLIN HPA 1 PKT TOP PRN (09:00)
[2019-01-08] MEDS ORDERED: METHYLERGONOVINE 0.2 MG INJ IM PRN (09:00)
[2019-01-08] MEDS ORDERED: OXYTOCIN 30 UNITS/LR 500 ML IV PRN (09:00)
[2019-01-08] MEDS ORDERED: HYDROCODONE/APAP (5/325) TAB PO PRN (09:00)
[2019-01-08] MEDS: WITCH HAZEL/GLYCERIN PAD PR PRN (10:04)
[2019-01-08] MEDS: IBUPROFEN 800 MG TAB PO SCH ×3 (14:24→23:36)
[2019-01-08] MEDS ORDERED: AL HYDROX/MG HYDROX/SIMETH 30 ML CUP PO ONE (16:10)
[2019-01-08] MEDS ORDERED: ALPRAZOLAM 1 MG TAB PO PRN (22:00)
[2019-01-08] MEDS ORDERED: ALPRAZOLAM 0.5 MG TAB PO PRN (23:21)
[2019-01-09 03:53] VITALS: BP 95/50; PULSE 70; RESP 18
[2019-01-09] MEDS: IBUPROFEN 800 MG TAB PO SCH ×4 (05:39→20:04)
[2019-01-09] MEDS ORDERED: ALPRAZOLAM 0.5 MG TAB PO PRN (06:00)
[2019-01-09 07:55] VITALS: BP 110/78; PULSE 65; RESP 20
--- NOTE | 2019-01-09 10:34 | PAC ---
Date/Time of Note Date/Time of Note DATE: 01/09/19 TIME: 10:33 Post-Anesthesia Notes Post-Anesthesia Note Last documented vital signs Vital Signs Date Temp Pulse Resp B/P (MAP) Pulse Ox O2 O2 Flow FiO2 Time Delivery Rate 01/09/19 97.3 65 20 110/78 Room Air 07:55 (89) 01/08/19 100 16:19 Activity: WNL Respiratory function: WNL Cardiovascular function: WNL Mental status: Baseline Pain reasonably controlled: Yes Hydration appropriate: Yes Nausea/Vomiting absent: Yes Comments BP:112/56, P:88, Spo2:100%, T:98,6 SRIDHAR SEGAL MD Jan 09, 2019 10:33
[2019-01-09] MEDS: WITCH HAZEL/GLYCERIN PAD PR PRN (12:39)
[2019-01-09 15:57] VITALS: BP 129/84; PULSE 79; RESP 20
--- NOTE | 2019-01-09 18:11 | PN ---
Date/Time of Note Date/Time of Note DATE: 01/09/19 TIME: 18:11 OB Subjective Subjective Subjective Subjective: Patient without complaints. Tolerating a regular diet. Breast-feeding. Lochia within normal limits. + ambulating. Objective: Vital signs within normal limits. H/H: 11. General: No apparent distress. Cardio: RRR Pulm:CTAB Abdomen: Fundus firm two fingerbreadths below umbillicus Extremities nontender to palpation. Assessment/plan: 1. day #1. routine care. 2. Anemia acute blood loss-expectant. ROBE QURESHI MD Jan 09, 2019 18:11
[2019-01-09 20:00] VITALS: BP 127/74; PULSE 78; RESP 18
[2019-01-10] MEDS: IBUPROFEN 800 MG TAB PO SCH ×2 (03:05→12:15)
[2019-01-10 04:00] VITALS: BP 125/85; PULSE 73; RESP 18
[2019-01-10 07:45] VITALS: BP 108/73; PULSE 66; RESP 16
[2019-01-10] MEDS ORDERED: MEASLES,MUMPS,RUBELLA VACCINE INJ SC* ONE (09:00)
[2019-01-10] MEDS ORDERED: DIPHTH/TET/ACEL PERTUSS (ADULT) 0.5 ML VIAL IM* ONE (09:00)
[2019-01-10] MEDS ORDERED: VARICELLA VACCINE LIVE/PF 1,350 UNIT/0.5 ML ML SC* ONE (09:00)
--- NOTE | 2019-01-10 13:22 | DS ---
Date/Time of Note Date/Time of Note DATE: 01/10/19 TIME: 13:22 Obstetrical Discharge Record Final Diagnosis Final Diagnosis: Term delivered Other Final Diagnosis Subjective: Patient without complaints. Tolerating a regular diet. Breast- feeding. Lochia within normal limits. + ambulating. Objective: Vital signs within normal limits. H/H: 11. General: No apparent distress. Abdomen: Fundus firm two fingerbreadths below umbillicus Extremities nontender to palpation. Assessment/plan: 1. day #2. Patient presented for induction of labor on 01/08/2019 for intrauterine growth restriction. She underwent a spontaneous vaginal delivery on 01/08/2019. Her hospital course was uncomplicated. 2. Anemia acute blood loss-expectant. disposition: Discharge to homeh in stable condition Condition on Discharge Physical Assessment Patient Condition: Stable MILESTONE,ROBE ALVARADO Jan 10, 2019 13:22
--- NOTE | 2019-01-11 15:28 | DELSUM ---
Delivery Summary A-C Datetime Report Generated by CPN: 01/11/2019 15:27 DELIVERY PERSONNEL Enterprise Analyst: Anupamavern Jericajez MATERNAL INFORMATION Delivery Anesthesia: Epidural Medications in Delivery: OXYTOCIN 30 UNITS IN LR Delivery QBL (ml): 300 Placenta Cultured: No Maternal Complications: Prolong Labor >20Hrs RN Comments: DR. LANE SAID "BABY IS IUGR" LABOR SUMMARY EDC: 01/14/2019 00:00 No. Babies in Womb: 1 Attempted: No Labor Anesthesia: Epidural LABOR INFORMATION Reason for Induction: Other Reason for Induction- Other: elective Onset of Labor: 01/07/2019 08:00 Complete Dilatation: 01/08/2019 05:30 Group B Beta Strep: Positive Antibiotics # of Doses: ampicillin x5 Antibiotics Time of Last Dose: 01/08/2019 05:23 Steroids Given: None Reason Steroids Not Administered: Not Applicable MEMBRANES Membranes Rupture Method: Artificial Rupture of Membranes: 01/08/2019 06:05 Length of Rupture (hr): 0.02 Amniotic Fluid Color: Clear Amniotic Fluid Amount: Large Amniotic Fluid Odor: Normal STAGES OF LABOR Stage 1 hr: 21 Stage 1 min: 30 Stage 2 hr: 0 Stage 2 min: 36 Stage 3 hr: 0 Stage 3 min: 4 Total Time in Labor hr: 22 Total Time in Labor min: 10 VAGINAL DELIVERY Episiotomy: None Laceration Extension: N/A Laceration Type: None Laceration Repair: Not Applicable Initial Vag Sponge Count: 10 Final Vag Sponge Count: 10 Initial Vag Sharps Count: 1 Final Vag Sharps Count: 1 Sponge Count Correct: Yes Sharps Count Correct: Yes BABY A INFORMATION Infant Delivery Date/Time: 01/08/2019 06:06 Method of Delivery: Vaginal Born in Route : No : N/A Forceps: N/A Vacuum Extraction: N/A Shoulder Dystocia : N/A SHOULDER DYSTOCIA BABY A Delivery Date/Time: 01/08/2019 06:06 PRESENTATION/POSITION BABY A Presentation: Cephalic Cephalic Presentation: Vertex Vertex Position: Right Occipital Anterior Breech Presentation: N/A PLACENTA INFORMATION BABY A Placenta Delivery Time : 01/08/2019 06:10 Placenta Method of Delivery: Manual Removal Placenta Status: Delivered SCORES BABY A Heart Rate 1 min: >100 bpm Resp Effort 1 min: Good Cry Reflex Irritability 1 min: Cough/Sneeze/Pulls Away Muscle Tone 1 min: Active Motion Color 1 min: Body [place], Extremit Blue Resuscitation Effort 1 min: Tactile Stimulation SCORE 1 MIN: 9 Heart Rate 5 min: >100 bpm Resp Effort 5 min: Good Cry Reflex Irritability 5 min: Cough/Sneeze/Pulls Away Muscle Tone 5 min: Active Motion Color 5 min: Body [place], Extremit Blue Resuscitation Effort 5 min: N/A SCORE 5 MIN: 9 INFORMATION BABY A Gestational Age at Delivery: 39.1 Gestational Status: Full Term- 39- 40.6 Weeks Infant Outcome : Liveborn, with signs of life Condition : Stable Infant Sex: Female IDENTIFICATION/MEDS BABY A ID Band Number: [id number] ID Band Location: Right Leg; Left Arm Sensor Applied: Yes Sensor Number: [id number] Sensor Location : Cord Clamp Vitamin K Given : Not Given Erythromycin Given: Not Given WEIGHT/LENGTH BABY A Birthweight (gm): 2655 Infant Weight (lb): 5 Infant Weight (oz): 14 Infant Length (in): 18.00 Length (cm): 45.72 CORD INFORMATION BABY A No. Cord Vessels: 3 Nuchal Cord : N/A Cord Blood Taken: Yes Banking/Donate Info: N/A Suction: Mouth; Nose ASSESSMENT BABY A Infant Complications: Other Infant Complications- Other: IUGR PER DR. LANE Physical Findings at Delivery: Within Normal Limits Infant Respirations: Appears Normal Grout Machine Operator/ALS Called : No Care By: Gabriela GIVENS RN Transferred To: Remains with Mother
== END 2019-01-10 15:15 | disposition home or self-care (01) | DRG 806 ==
LOC: L-D 07:43 → PP1 01-08 09:15
PROVIDERS: ADMIT Obstetrics & Gynecology; ATTEND Obstetrics & Gynecology
PROC: 10E0XZZ Delivery of Products of Conception, External Approach (ICD-10-PCS; principal; 2019-01-08)
DX: O99.214 Obesity complicating childbirth (principal); D62 Acute posthemorrhagic anemia; Z37.0 Single live birth; E66.01 Morbid (severe) obesity due to excess calories; O99.02 Anemia complicating childbirth; Z3A.38 38 weeks gestation of pregnancy
CPT/HCPCS: 62322; 76815; 76818; 80053; 80307; 81001; 84560; 85025; 85384; 85610; 85730; 86592; 86850; 86885; 86900; 86901; 87086; 87340; 88307; 90716; J0290; J2590; J2790; J3010; J7120